=== PATIENT | male | born 1960 | race Caucasian/White ===

== ENCOUNTER → 2019-06-18 15:59 | Outpatient (CLI) | payer BC, SELFPAY ==
[2018-03-10 10:02] VITALS: BMI 33.4
[2019-06-18 18:02] LABS: Absolute Lymphocyte Count 2.68 X10^3/uL (0.83-4.51); Absolute Neutrophil Count 2.9 X10^3/uL (2.0-7.7); Basophil# 0.07 X10^3/uL; Eosinophil# 0.26 X10^3/uL; Eosinophils% 3.8 % (0-5); Hematocrit 39.3 % (40-54); Hemoglobin 13.2 g/dL (13.0-16.5); Lymphocyte # 2.68 X10^3/ul (4.0); Lymphocyte % 39.5 % (19-41); Mean Corp Hgb Conc 33.6 g/dL (32-36); Mean Corpuscular Hgb 31.5 pg (27.0-32.0); Mean Corpuscular Volume 93.8 fL (80-94); Mean Platelet Vol. 8.3 fl (6.2-12.0); Monocyte% 11.8 % (0-10); NRBC Flagged by Analyzer 0 % (0-5); Neutrophil # 2.94 X10^3/uL (2.7-7.7); Neutrophil % 43.5 % (47-70); Platelet Count 194 K/mm3 (150-450); RBC Distribution Width CV 11.9 % (11.6-14.6); RBC Distribution Width SD 40.7 fl (35.1-43.9); Red Blood Count 4.19 M/mm3 (4.6-6.2); White Blood Count 6.8 K/mm3 (4.4-11.0)
== END ==
PROVIDERS: Family Provider Preventive Medicine Occupational Medicine; PCP Preventive Medicine Occupational Medicine; Referring Provider Internal Medicine Pulmonary Disease; Visit Provider Internal Medicine Pulmonary Disease
DX: G47.10 Hypersomnia, unspecified (principal); J44.9 Chronic obstructive pulmonary disease, unspecified
CPT/HCPCS: 36415; 85025

== ENCOUNTER → 2019-10-03 16:43 | Outpatient (CLI) | payer BC, SELFPAY ==
[2018-03-10 10:02] VITALS: BMI 33.4
== END ==
PROVIDERS: PCP Preventive Medicine Occupational Medicine; Referring Provider Urology; Visit Provider Urology
DX: N40.1 Benign prostatic hyperplasia with lower urinary tract symptoms (principal)
CPT/HCPCS: 36415; 84153

== ENCOUNTER → 2020-05-20 06:36 | Outpatient (CLI) | payer BC, SELFPAY ==
--- NOTE | 2020-05-20 06:42 | CT_ITS ---
HISTORY: Gross hematuria follow up. Hx hypertension, skin cancer, COPD. ADDITIONAL HISTORY: None provided. TECHNIQUE: CT images were obtained of the abdomen and pelvis without and with 100mL Isovue-300 IV contrast, enhanced images performed during the venous phase.. Enteric contrast was not given. A radiation dose optimization technique was used for this scan. Number of images including paperwork: [id number] COMPARISON: None FINDINGS: CHEST BASE: No consolidation or pleural effusion. Coronary calcification. LIVER: Decreased density compatible steatosis. Enlarged, right lobe about 18 cm craniocaudal. GALLBLADDER: No radiopaque calculi. BILE DUCTS: No significant biliary dilatation. SPLEEN: Unremarkable. PANCREAS: Unremarkable. ADRENAL GLANDS: Unremarkable. KIDNEYS/URETERS: Unremarkable. BOWEL: No bowel obstruction. No significant bowel wall thickening. No localized inflammation. Colonic diverticulosis. APPENDIX: No evidence of appendicitis. FREE FLUID: No significant free fluid. FREE AIR: None. LYMPH NODES: No pathologic appearing adenopathy. PERITONEUM, RETROPERITONEUM AND MESENTERY: Otherwise unremarkable. VASCULATURE: Atherosclerotic calcification. PELVIS: Unremarkable bladder. ABDOMINAL WALL: Unremarkable. OSSEOUS AND SOFT TISSUE STRUCTURES: No acute skeletal findings. CT/CT Abd/Pelvis W/WO Contrast IMPRESSION: 1. No cause of hematuria detected. 2. Colonic diverticulosis. 3. Hepatomegaly. 4. Hepatic steatosis. Individualized dose optimization techniques were used for this CT. at 0748 Reported and signed by: Nora Blackwell MD Electronically Signed: Nora Blackwell MD at 7:48 EDT Tel , Service support ,
== END ==
PROVIDERS: PCP Preventive Medicine Occupational Medicine; Referring Provider Nurse Practitioner Adult Health; Visit Provider Nurse Practitioner Adult Health
DX: R31.0 Gross hematuria (principal)
CPT/HCPCS: 74178; Q9967

== ENCOUNTER 2020-07-08 06:13 | Observation (INO) | payer BC, SELFPAY ==
[2020-07-08] VITALS (21 sets, daily range): BP systolic 137–172; BP diastolic 82–106; PULSE 60–95; RESP 17–18; TEMP 36.1–37.1; O2SAT 96–99; BMI 34.7; BMI 40.1; BMI 40.2
--- NOTE | 2020-07-08 06:56 | RAD_ITS ---
STUDY: X-RAY CHEST REASON FOR EXAM: Male, 59 years old. CP, CHEST HEAVINESS, SOB X 2 DAYS TECHNIQUE: Single AP portable view of the chest. COMPARISON: Comparison is made with prior study dated 09/13/2014. FINDINGS: EKG electrodes are seen. Hyperinflation. Minimal increased markings at the lung bases suggestive of bibasilar scarring. There is no demonstrated pleural abnormality. Normal size heart. Normal mediastinum and silverio. Normal visualized pulmonary arteries. There is atherosclerotic tortuosity of the aortic arch and descending thoracic aorta. There are diffuse degenerative changes of the visualized thoracic spine. Normal visualized ribs, clavicles, and shoulders. There is no demonstrated abnormality of the visualized soft tissue structures of the upper abdomen. RAD/Chest 1 View (Portable) IMPRESSION: Hyperinflation. Mild degree of bibasilar scarring. Electronically Signed: Daniele Azul, at 8:12 EST , Service support ,
--- NOTE | 2020-07-08 06:56 | EKG12_ITS ---
Test Reason : CP Blood Pressure : / mmHG Vent. Rate : 066 BPM Atrial Rate : 066 BPM P-R Int : 186 ms QRS Dur : 080 ms QT Int : 392 ms P-R-T Axes : 035 -06 000 degrees QTc Int : 410 ms Normal sinus rhythm Normal ECG When compared with ECG of 08-JUL-2020 09:27, MANUAL COMPARISON REQUIRED, DATA IS UNCONFIRMED Confirmed by RISSA RIVERS, MASON ([id number]), corporate compliance officer NAEL DORMAN ([id number]) on 07/10/2020 10:59:21 AM Referred By: Confirmed By:MASON KWOK MD
--- NOTE | 2020-07-08 06:57 | ED.VIS.CHEST ---
History of Present Illness Chief Complaint: Shortness of Breath Informant: Patient Onset: Month(s) - 5-6 Activity at onset: Exertion - but not every episode Timing: Intermittent, Lasts - 5-10 min Quality: Heaviness Location: Substernal - without radiation Current Severity: Gone Maximum Severity: Severe Worsened By: Nothing Relieved By: Nothing Associated Symptoms: Dyspnea. Negative for: Nausea, Vomiting, Diaphoresis, Cough, Fever, Lightheadedness, Palpitations Narrative: 59-year-old male presents with episodic nonpleuritic chest pain and shortness of breath. Symptoms are gone now. He states upon almost arriving to the ER they seem to resolve. He has been having these episodes since the summer this year. He is scheduled to see GI for an EGD because of the symptoms. He has had no other testing. Has no known history of heart disease. He is treated for hypertension, hyperlipidemia, COPD, and he states he is a borderline diabetic. He presents to the ER this morning even though the symptoms are identical, because this was the worst severity episode he has had. He states they usually occur in the morning, but they are usually when he is at work and exerting himself lightly as it was this morning. He denies symptoms when lying supine. He denies any leg pain or swelling, no history of DVT or PE. CVD Risk Factors: Hypertension, Diabetes, Hypercholesterolemia, Family History 1' </=55, Smoking - former - Past Medical History (1) Borderline diabetes Status: Chronic (2) COPD (chronic obstructive pulmonary disease) Status: Chronic (3) Dyslipidemia Status: Chronic (4) HTN (hypertension) Status: Chronic Past Medical History - Allergies and Home Meds Allergies/Adverse Reactions: Allergies No Known Allergies Allergy (Verified 07/08/20 06:17) Primary Care Physician: Tang Salinas DO [Primary Care Provider] - Surgical History: no surgical history Smoking Status: Former smoker - Family History Paternal Family History: Reports: Heart Disease Review of Systems General: Denies: Chills, Fever, Sweats Eyes: Denies: Visual changes - bilaterally, Diplopia ENT: Denies: Rhinorrhea, Sore throat Cardiovascular: Reports: Chest pain. Denies: Palpitations Respiratory: Reports: Dyspnea. Denies: Cough, Dyspnea on exertion Gastrointestinal: Denies: Abdominal pain, Nausea, Vomiting, Diarrhea, Melena, Hematochezia Genitourinary: Denies: Dysuria, Hematuria, Frequency Musculoskeletal: Denies: Myalgias, Back pain, Extremity Pain Skin: Denies: Rash, Wounds Neurological: Denies: Headache, Weakness, Numbness Physical Exam Vital Signs/Narrative: Vital Signs Temp Pulse Resp BP Pulse Ox 07/08/20 06:14 96.9 F L 95 17 167/92 H 98 Inital Vital Signs reviewed: Yes General: Well nourished, Well developed, No Acute Distress Head: Normocephalic, Atraumatic Eyes: Perrl, EOMI ENT: Moist mucous membranes, No rhinorrhea Neck: Supple, Nontender Cardiovascular: Regular rate, Regular rhythm, No murmurs Respiratory: No distress, CTA bilaterally, Chest nontender Abdomen: Soft, Nontender, Nondistended, Normal bowel sounds Back: Nontender, Normal Inspection Extremities: Nontender, No edema. Negative for: Calf Tenderness Skin: Normal color, No rash, No Trauma Neurological: Alert, Oriented x3, Cranial nerves II-XII grossly intact, Normal Strength, Normal Sensation, Normal Gait Psychological: Normal affect, Normal Mood Diagnostic/Tx/Re-eval Chest X-Ray - ED: 1 View, Read by ED Physician, No Acute Disease, Chronic Changes - c/w COPD Laboratory Tests 07/08/20 07/08/20 Range/Units 07:15 07:15 WBC 5.0 (4.4-11.0) K/mm3 RBC 4.46 L (4.6-6.2) M/mm3 Hgb 13.7 (13.0-16.5) g/dL Hct 41.8 (40-54) % MCV 93.7 (80-94) fL MCH 30.7 (27.0-32.0) pg MCHC 32.8 (32-36) g/dL RDW Std Deviation 41.8 (35.1-43.9) fl RDW Coeff of Veda 12.1 (11.6-14.6) % Plt Count 193 (150-450) K/mm3 MPV 7.8 (6.2-12.0) fl Immature Gran % (Auto) 0.400 (0.0-0.9) % Neut % (Auto) 57.3 (47-70) % Lymph % (Auto) 25.8 (19-41) % [place] % (Auto) 12.3 H (0-10) % Eos % (Auto) 3.4 (0-5) % Baso % (Auto) 0.8 (0-1) % Absolute Neuts (auto) 2.9 (2.0-7.7) X10^3/uL Absolute Lymphs (auto) 1.28 (0.83-4.51) X10^3/uL Nucleated RBC % 0 (0-5) % Sodium 135 L (136-145) mmol/L Potassium 4.3 (3.5-5.1) mmol/L Chloride 104 (98-107) mmol/L Carbon Dioxide 31.0 (21.0-32.0) mmol/L Anion Gap 0 L (5-15) BUN 21 H (7-18) mg/dL Creatinine 1.10 (0.70-1.30) mg/dL Estim Creat Clear Calc 74.66 ml/min Est GFR (MDRD) Af Amer 88 (>60) mL/min Est GFR (MDRD) Non-Af 73 (>60) mL/min BUN/Creatinine Ratio 19.1 (10-20) RATIO Glucose 145 H (74-106) mg/dL Calcium 8.8 (8.5-10.1) mg/dL Troponin I < 0.015 (<0.045) ng/mL - Rhythm Strip Rhythm Strip: Sinus Rhythm Rate: 76 Ectopy: None - EKG Initial EKG Interpretation: Sinus Rhythm, No Acute Injury Pattern - normal EKG Prior: No Prior Treatment: Aspirin Repeat Eval: Pain Free NISHANT Risk: Age >/= 65, >/= 3RF, Severe Angina </=24 hours Score: 3 - Medical Decision Making Symptoms are concerning, his EKG and troponin are negative, he remained chest pain-free. He was given aspirin. He had a stress test in 2014 that was negative, but he has not had one since. He has risk factors including family history at a young age, his mother. If he is going to follow-up with GI regarding this, I think he would benefit from having a negative stress test first, which would further the likelihood that he is not having episodes of unstable angina. Patient is amenable to staying for a stress test if we can get it today, since it is early in the morning we suspect that can happen. Discussed with hospitalist for inpatient observation. ED Disposition - Plan for ED Patient: Disposition: Acute Care Hospital [facility] Diagnosis: Chest pain, unspecified Referrals: Tang Salinas DO [Primary Care Provider] -
[2020-07-08] MEDS: Aspirin 81 MG TAB.CHEW 324 MG PO (07:10)
[2020-07-08 07:23] LABS: Absolute Lymphocyte Count 1.28 X10^3/uL (0.83-4.51); Absolute Neutrophil Count 2.9 X10^3/uL (2.0-7.7); Basophil# 0.04 X10^3/uL; Basophil% 0.8 % (0-1); Eosinophil# 0.17 X10^3/uL; Eosinophils% 3.4 % (0-5); Hematocrit 41.8 % (40-54); Hemoglobin 13.7 g/dL (13.0-16.5); Lymphocyte # 1.28 X10^3/ul (4.0); Lymphocyte % 25.8 % (19-41); Mean Corp Hgb Conc 32.8 g/dL (32-36); Mean Corpuscular Hgb 30.7 pg (27.0-32.0); Mean Corpuscular Volume 93.7 fL (80-94); Mean Platelet Vol. 7.8 fl (6.2-12.0); Monocyte# 0.61 X10^3/uL; Monocyte% 12.3 % (0-10); NRBC Flagged by Analyzer 0 % (0-5); Neutrophil # 2.85 X10^3/uL (2.7-7.7); Neutrophil % 57.3 % (47-70); Platelet Count 193 K/mm3 (150-450); RBC Distribution Width CV 12.1 % (11.6-14.6); RBC Distribution Width SD 41.8 fl (35.1-43.9); Red Blood Count 4.46 M/mm3 (4.6-6.2)
[2020-07-08 07:40] LABS: Anion Gap 0 (5-15); BUN 21 mg/dL (7-18); BUN/Creat Ratio 19.1 RATIO (10-20); Calcium,Total 8.8 mg/dL (8.5-10.1); Chloride 104 mmol/L (98-107); EST Glomerular Filtration Rate 73 mL/min (>60); Est Glom Filt Rate - Afr Amer 88 mL/min (>60); Estimated Creatinine Clearance 74.66 ml/min; Glucose 145 mg/dL (74-106); Potassium 4.3 mmol/L (3.5-5.1); Sodium Level 135 mmol/L (136-145)
--- NOTE | 2020-07-08 08:06 | EKG12_ITS ---
Test Reason : CP Blood Pressure : / mmHG Vent. Rate : 059 BPM Atrial Rate : 059 BPM P-R Int : 182 ms QRS Dur : 078 ms QT Int : 402 ms P-R-T Axes : 036 020 011 degrees QTc Int : 397 ms Sinus bradycardia Otherwise normal ECG When compared with ECG of 08-JUL-2020 06:33, MANUAL COMPARISON REQUIRED, DATA IS UNCONFIRMED Confirmed by RISSA RIVERS, MASON ([id number]), news editor NAEL DORMAN ([id number]) on 07/10/2020 10:59:53 AM Referred By: Confirmed By:MASON KWOK MD
--- NOTE | 2020-07-08 10:53 | PCM.HP.STD ---
Problem List (1) Chest pain, unspecified Status: Acute (2) Borderline diabetes Status: Chronic (3) HTN (hypertension) Status: Chronic (4) COPD (chronic obstructive pulmonary disease) Status: Chronic (5) Dyslipidemia Status: Chronic (6) Disorientation Status: Acute History of Present Illness Date of Admission: 07/08/20 Chief Complaint: chest pain The patient is a 59 year old M with pmhx of HTN, HLD, prediabetes, former smoker, family hx CAD who presented to the ER with c/o intermittent chest pain. This is described as an intermittent chest heaviness across the whole chest that occurs with exertion and is relieved at rest. The duration is usually about 5 mins. He has been having these episodes for months. He was supposed to see a financial operations consultant for an EGD as his PCP was concerned this was gastric in etiology. The patient had some associated SOB. He denies diaphoresis, LH, or dizziness, or palp. He currently has no CP. He had a negative stress test in 2014. [] Past Medical History Past Medical History (Chronic Problems): Chronic Problems (Last Updated 03/10/18 @ 10:05 by Zunilda Jones) Borderline diabetes (Chronic) HTN (hypertension) (Chronic) COPD (chronic obstructive pulmonary disease) (Chronic) Dyslipidemia (Chronic) Medical History: Medical History (Last Updated 03/10/18 @ 10:05 by Zunilda Jones) Cancer C80.1 Lung disease J98.4 SOB (shortness of breath) R06.02 HTN (hypertension) I10 Allergies No Known Allergies Allergy (Verified 07/08/20 06:17) Home Medications: Ambulatory Orders Medication Instructions Recorded Lisinopril [Zestril] 10 mg PO DAILY 09/13/14 Simvastatin [Zocor] 40 mg PO QHS 09/13/14 Alfuzosin HCl [Alfuzosin HCl ER] 10 mg PO DAILY 07/08/20 Fluticasone/Umeclidin/Vilanter 1 ea IH DAILY 07/08/20 [Trelegy Ellipta 100-62.5-25] Icosapent Ethyl [Vascepa] 2 gm PO BID 07/08/20 Omeprazole 40 mg PO DAILY 07/08/20 Prednisone 20 mg PO DAILY 07/08/20 Ropinirole HCl 0.5 mg PO QHS 07/08/20 Surgical History: Surgical History (Last Updated 03/10/18 @ 10:05 by Zunilda Jones) History of back surgery Z98.890 Surgical History: no surgical history Psychiatric History: No pertinent psych hx Lives: Alone Smoking Status: Former smoker Tobacco Use: Non-smoker Alcohol: None Drugs: None - *Family History Paternal History Items: No pertinent history Maternal History Items: Heart Disease Review of Systems Constitutional: Denies: Chills, Fever, Weight Change HEENT: Denies: Head Aches, Sinus Congestion, Sinus Drainage Cardiovascular: Reports: Chest Pain, Heaviness. Denies: Edema, Light Headedness, Palpitations Respiratory: Reports: Shortness of Breath, Shortness of breath upon exertion. Denies: Cough, Shortness of breath at rest, Sputum production Gastrointestinal: Denies: Abdominal Pain, Diarrhea, Nausea, Vomiting Genitourinary: Denies: Dysuria, Hesitancy, Urgency Musculoskeletal: Denies: Joint Pain, Joint Tenderness Skin: Denies: Lesions, Rash, Wounds Neurological: Denies: Numbness, Tingling, Focal weakness Psychiatric: Denies: Anxiety, Depression, Homicidal Ideations, Suicidal Ideations Hematologic/ Lymphatic: Denies: Easy Bruising, Easy Bleeding VTE Information - Inpt Only VTE Present on Admission: No VTE Mechan Device Prophylaxis: None VTE Pharm Prophylaxis ordered?: Yes Patient Problems: Active and Suspected Problems (Last Updated 03/10/18 @ 10:05 by Zunilda Jones) Chest pain, unspecified (Acute) - Physical Exam Vitals/I&O's: Vital Signs Temp Pulse Resp BP Pulse Ox 98.7 F 65 18 152/92 H 98 07/08/20 08:20 07/08/20 08:21 07/08/20 08:20 07/08/20 08:20 07/08/20 08:20 Oxygen Delivery Method Room Air Weight: 280 lb 3.32 oz Body Mass Index (BMI) 40.1 Finger Stick Blood Glucose 101 General: Alert, Oriented x3, Cooperative HEENT: Atraumatic, PERRLA, EOMI, Normocephalic Neck: Supple, No JVD, Negative Carotid Bruits Lungs: Clear to auscultation, Normal air movement Cardiovascular: Regular rate, No murmurs Abdomen: Bowel Sounds Present, Soft, Non Tender, Obese Extremities: No edema, Capillary Refill Less than 3 Seconds Skin: No rashes, No breakdown Musculoskeletal: No Tenderness to Palpation of Joints or Extremities Neurological: Cranial nerves II-XII grossly intact Psych/Mental Status: Normal Affect, Appropriate Laboratory Results 07/08/20 07:15: WBC 5.0, RBC 4.46 L, Hgb 13.7, Hct 41.8, MCV 93.7, MCH 30.7, MCHC 32.8, RDW Std Deviation 41.8, RDW Coeff of Veda 12.1, Plt Count 193, MPV 7.8, Immature Gran % (Auto) 0.400, Neut % (Auto) 57.3, Lymph % (Auto) 25.8, [place] % (Auto) 12.3 H, Eos % (Auto) 3.4, Baso % (Auto) 0.8, Absolute Neuts (auto) 2.9, Absolute Lymphs (auto) 1.28, Nucleated RBC % 0 07/08/20 07:15: Sodium 135 L, Potassium 4.3, Chloride 104, Carbon Dioxide 31.0, Anion Gap 0 L, BUN 21 H, Creatinine 1.10, Estim Creat Clear Calc 74.66, Est GFR (MDRD) Af Amer 88, Est GFR (MDRD) Non-Af 73, BUN/Creatinine Ratio 19.1, Glucose 145 H, Calcium 8.8, Troponin I < 0.015 07/08/20 09:18: Troponin I 0.048 H Current Medications Sodium Chloride () 250 mls @ 15 mls/hr IV .[id number] PRN PRN Reason: Saline Flush Sodium Chloride () 250 mls @ 15 mls/hr IV .[id number] PRN PRN Reason: Additional IVPB Infusion Sodium Chloride (0.9% Saline Lock 10 Ml Syringe) 10 - 40 ml IV UD PRN PRN Reason: SALINE FLUSH Assessment/Plan All Active Problems (Last Updated 03/10/18 @ 10:05 by Zunilda Jones) Chest pain, unspecified (Acute) Disorientation (Acute) 1. Chest pain - hx HTN, HLD, obesity, borderline DMt2, former smoker, COPD, family hx CAD. 2nd troponin indeterminate. Consult cardiology. EKG neg. Repeat Troponin. Check FLP. Check A1C. Continue aspirin, statin, misa-i 2. HTN - mildly elevated - trend. 3. HLD - continue statin, vascepa. 4. COPD - lungs clear. prn albuterol. No exacerbation. 5. GERD - PPI. DVT ppx: lovenox This patient was seen by Michele Holland PA-C under the supervision of Dr. Higgins.
--- NOTE | 2020-07-08 11:09 | NURSING ---
Called repot to Che STEVEN in r&d lab technician
[2020-07-08 11:23] LABS: Cholesterol 133 mg/dL (200); High Density Lipoprotein 33 mg/dL; Triglycerides 333 mg/dL; Very Low Density Lipoprotein 67 mg/dL (5-40)
[2020-07-08 11:25] LABS: Hemoglobin A1c 5.7 % (3.8-5.6)
--- NOTE | 2020-07-08 11:38 | CASEMGMT ---
According to the [facility] website, the following are in-network tertiary facilities: [facility], [place], [facility], [facility], [facility], [facility], [facility], and . Grisel STEVEN CM
--- NOTE | 2020-07-08 12:39 | CON.PCM_ITS ---
Reason for Consult Date of Consultation: 07/08/20 Reason for Consultation: Chest pain History of Present Illness: The patient is a 59 year old M with no previous cardiac history other than hypertension who presents to the emergency room last night with chest discomfort. He described this as a heaviness like someone sitting on his chest. He did not break out in a sweat. He is not had any palpitations no paroxysmal nocturnal dyspnea or pedal edema he has not had any neck arm or jaw discomfort previously. He has been compliant with all his medications. In the emergency room he was evaluated he was noted to be in normal sinus rhythm he was admitted to the telemetry care unit and was scheduled to have a stress test this morning. I was called by the stress lab due to his mildly abnormal troponin and we canceled the stress test in favor of further invasive therapy based on his history. [] Past Medical History Allergies/Adverse Reactions: Allergies No Known Allergies Allergy (Verified 07/08/20 06:17) Home Medications: Ambulatory Orders Medication Instructions Recorded Lisinopril [Zestril] 10 mg PO DAILY 09/13/14 Simvastatin [Zocor] 40 mg PO QHS 09/13/14 Alfuzosin HCl [Alfuzosin HCl ER] 10 mg PO DAILY 07/08/20 Fluticasone/Umeclidin/Vilanter 1 ea IH DAILY 07/08/20 [Trelegy Ellipta 100-62.5-25] Icosapent Ethyl [Vascepa] 2 gm PO BID 07/08/20 Omeprazole 40 mg PO DAILY 07/08/20 Prednisone 20 mg PO DAILY 07/08/20 Ropinirole HCl 0.5 mg PO QHS 07/08/20 Past Medical History (Chronic Problems): Chronic Problems (Last Updated 03/10/18 @ 10:05 by Zunilda Jones) Borderline diabetes (Chronic) HTN (hypertension) (Chronic) COPD (chronic obstructive pulmonary disease) (Chronic) Dyslipidemia (Chronic) Surgical History: no surgical history Psychiatric History: No pertinent psych hx - *Family History Maternal History Items: Heart Disease Paternal History Items: No pertinent history Lives: Alone Smoking Status: Former smoker Tobacco Use: Non-smoker Alcohol: None Drugs: None Review of Systems - Review of Systems General: Denies: Fever, Night Sweats, Fatigue HEENT: Denies: Vision Change Cardiovascular: Reports: Chest Discomfort, Chest Discomfort at Rest. Denies: Shortness of Breath, Orthopnea, PND, Peripheral Edema, Palpitations, Lightheadedness, Dizziness, Near Syncope, Syncope Respiratory: Denies: Cough, Sputum Production, Hemoptysis Gastrointestinal: Denies: Hematemesis, Hematochezia, Melena Genitourinary: Denies: Dysuria, Hematuria Skin: Denies: Rash Neurological: Denies: Dizziness Psychiatric: Denies: Anxiety Endocrine: Denies: Heat Intolerance Hematologic/ Lymphatic: Denies: Lymph Node Enlargement Subjectve: Pleasant gentleman in no distress Objective: Vital Signs Temp Pulse Resp BP Pulse Ox 97.6 F L 68 18 166/106 H 98 07/08/20 11:00 07/08/20 11:00 07/08/20 11:00 07/08/20 11:00 07/08/20 11:00 Oxygen Delivery Method Room Air Weight: 280 lb 3.32 oz Body Mass Index (BMI) 40.1 Finger Stick Blood Glucose 101 General: Awake, Alert, Oriented x 3 HEENT: PERRL, EOMI, Sclera Non Icteric Neck: Supple, Good ROM, No Lymph Node Enlargement Lungs: Clear to auscultation Cardiovascular: Regular Rhythm, Normal S1, Normal S2, No Murmurs, No Rubs, No Gallops Vascular: No Carotid Bruits, Normal Femoral Pulses, Normal Radial Pulses, Normal Dorsalis Pedal Pulse, Normal Posterior Tibial Pulses Abdomen: Bowel Sounds Present, Soft, Non Tender, No HSM, No Organomegaly Extremities: No Cyanosis, No Clubbing, No edema Musculoskeletal: No Erythema Skin: No Rashes Lymphatic: No Lymph Node Enlargement Neurological: No Focal Motor or Sensory Deficit Psych/Mental Status: Appropriate 07/08/20 07:15: WBC 5.0, RBC 4.46 L, Hgb 13.7, Hct 41.8, MCV 93.7, MCH 30.7, MCHC 32.8, Plt Count 193, MPV 7.8, Immature Gran % (Auto) 0.400, Neut % (Auto) 57.3, Lymph % (Auto) 25.8, [place] % (Auto) 12.3 H, Eos % (Auto) 3.4, Baso % (Auto) 0.8, Absolute Neuts (auto) 2.9, Nucleated RBC % 0 07/08/20 07:15: Sodium 135 L, Potassium 4.3, Chloride 104, Carbon Dioxide 31.0, Anion Gap 0 L, BUN 21 H, Creatinine 1.10, Est GFR (MDRD) Af Amer 88, Est GFR (MDRD) Non-Af 73, BUN/Creatinine Ratio 19.1, Glucose 145 H, Calcium 8.8, Troponin I < 0.015 07/08/20 09:18: Troponin I 0.048 H 07/08/20 09:18: Triglycerides 333 H, Cholesterol 133, LDL Cholesterol 33, VLDL Cholesterol 67 H, HDL Cholesterol 33 L 07/08/20 09:18: Hemoglobin A1c 5.7 H Rhythm: EKG: Normal sinus rhythm with no acute changes ECHO: Stress Test: Cardiac Cath: PCI: CT Surgery: Holter monitor: EPS: PPM: CXR: Chest CT Scan: Assessment/Plan 1. Unstable angina * Patient presents with chest pain with no exertional features. The above findings are concerning for unstable angina. With a mild troponin rise I would recommend that the patient undergo a cardiac catheterization. The risk benefits alternatives were explained to him and he had slurred and agrees to proceed. Depending on the findings further recommendations will be made. * 2. Hypertension * Patient is noted to be hypertensive. The plan is to continue his current medication with aggressive risk factor modification. * 3. Hyperlipidemia * He does have a history of hyperlipidemia and he will be continued on aggressive risk factor modification. * Addendum: Cardiac catheterization performed today demonstrated the following: Normal left main coronary. Calcified left anterior descending artery with moderate 30 to 50% proximal to mid segment stenosis. Left circumflex artery with no high-grade stenosis. Dominant large right coronary artery with proximal 95% stenosis and a calcified vessel and a mid 99% stenosis. Preserved left ventricular systolic function. Based on the above angiographic findings the patient would undergo angioplasty and stenting of the right coronary artery.
--- NOTE | 2020-07-08 12:50 | CL.D_ITS ---
Patient Name: MERCY MILLAN Study Date: 07/08/2020 Performing: Ronny Lozoya MD Ht: 70.07 inches 178 cm : 1960 Wt: 279.99 lbs 127 kg Age: 59 Gender: male BSA: 2.41 PROCEDURE(S) PERFORMED [id number]/LV [id number], SINGLE CORONARY ARTERY CLINICAL PROFILE AND INDICATIONS Indications: Worsening Angina Heart Failure: None Stress/Imaging Stress/Image Study Performed: No CAD Presentations: Unstable angina. CONCLUSIONS Significant single-vessel coronary disease with proximal 95% right coronary artery stenosis and mid 9 9% right coronary stenosis in the calcified vessel. Calcification noted in the left anterior descend ing artery with mild to moderate disease. Preserved left ventricular systolic function. RECOMMENDATIONS Referred for immediate PCI DESCRIPTION OF PROCEDURE The patient arrived to the procedure lab. The risks and benefits of the procedure as well as a full d escription of our services here and current unavailability of surgical backup were fully explained to the patient and/or their significant other prior to the catheterization. The Timeout was completed, verifying the correct patient and procedure. The patient's procedural site was prepped and draped in the usual fashion. Local anesthetic was given subcutaneously to right radial region with Lidocaine 2% . Using a modified Seldinger technique, arterial access was obtained via the right radial artery, a 6 Fr sheath was inserted. Left Coronary Artery selective angiography was performed in multiple views u sing a 5 Fr. 4.0 [place] catheter. Right Coronary Artery selective angiography was then performed in mu ltiple views using a 5 Fr. 4.0 [place] catheter. Left Ventriculography was performed in CORTEZ projection using a 5 Fr. Pigtail catheter. LV to AO pullback pressures were then recorded. CORONARY ANGIOGRAPHY DOMINANCE: Right Dominant LEFT HEART ASSESSMENT Left Ventricular Ejection Fraction: by LV Gram 60 % Normal LV wall motion Normal Left Ventricular systolic function LEFT MAIN: Mild calcification, Angiographically normal LEFT ANTERIOR DESCENDING ARTERY: PROX LAD: Mild luminal irregularities less than 30% MID LAD: Moderate calcification CIRCUMFLEX ARTERY: No significant disease noted RIGHT CORONARY ARTERY: Moderate calcification PROX RCA: 95 % Stenosis MID RCA: 99 % Stenosis COMPLICATIONS PROCEDURE MEDICATIONS Fentanyl 50 mcg IV Versed 1 mg IV Oxygen: 2 L/min via nasal cannula Brilinta 180 mg PO @ 07/08/2020 12:33:29 Heparin diluted in 23cc Heparinized saline. Patient given 10cc IA of this solution. 07/08/2020 12:16 :39 Heparin 7000 unit(s) IV 07/08/2020 12:41:38 Verapamil 2.5mg, Ntg 100mcgs, 2000 units of Heparin diluted in 23cc Heparinized saline. Patient give n 10cc IA of this solution. 07/08/2020 12:16:39 SUMMARY OF HEMODYNAMIC DATA Time AIR REST ECG 11:27:33 AO 150/92 (118) SA 12:23:52 LV 154/4, 14 12:31:22 LV 157/4, 14 12:31:27 LV 151/8, 16 12:32:33 LVp 154/7, 22 12:32:36 AOp 164/90 (121) 12:32:41 Signed By Ronny Lozoya MD On 07/08/2020 12:49:24 Ronny Lozoya MD
--- NOTE | 2020-07-08 13:30 | EKG12_ITS ---
Test Reason : SOB Blood Pressure : / mmHG Vent. Rate : 076 BPM Atrial Rate : 076 BPM P-R Int : 186 ms QRS Dur : 084 ms QT Int : 380 ms P-R-T Axes : 059 023 022 degrees QTc Int : 427 ms Normal sinus rhythm Normal ECG Confirmed by LIANET RIVERS, CLAUDE ([id number]), photography editor NAEL DORMAN ([id number]) on 07/13/2020 9:28:20 A M Referred By: HUGH Confirmed By:AMIE MARTINI MD
[2020-07-08] MEDS: 0.9% Normal Saline 1,000 ML 100 ML IV (13:45)
[2020-07-08 14:31] LABS: Hematocrit 40.7 % (40-54); Hemoglobin 13.7 g/dL (13.0-16.5); Mean Corp Hgb Conc 33.7 g/dL (32-36); Mean Corpuscular Hgb 31.1 pg (27.0-32.0); Mean Corpuscular Volume 92.5 fL (80-94); Mean Platelet Vol. 7.9 fl (6.2-12.0); Platelet Count 204 K/mm3 (150-450); RBC Distribution Width CV 11.9 % (11.6-14.6); RBC Distribution Width SD 40.8 fl (35.1-43.9); White Blood Count 6.3 K/mm3 (4.4-11.0)
--- NOTE | 2020-07-08 15:00 | CRPHASE1_ITS ---
Patient Communication PHII Cardiac Rehab Discussed with Patient:: Yes Guide to Cardiac Rehab Given to Patient:: Yes Cardiac Rehab Facility Choice List Given to Patient:: Yes Choice Program [facility] CR PHII:: Communication Given to CR, Refer to [facility] Cup[employer] Liner Helper:: Shireen Short Refer Phase II Cardiac Rehab:: Yes - to take place after discharge Risk Factors/Lifestyle Laboratory Values: Cardiac Rehab Phase I Labs Hemoglobin A1c 5.7 % (3.8-5.6) H 07/08/20 09:18 Triglycerides 333 mg/dL (-199) H 07/08/20 09:18 Cholesterol 133 mg/dL (200) 07/08/20 09:18 LDL Cholesterol 33 mg/dL (0-130) 07/08/20 09:18 HDL Cholesterol 33 mg/dL (40-) L 07/08/20 09:18 Cardiac Rehabilitation Info Cardiac Rehabilitation Program Information: Cardiac Rehabilitation is important for patients like you who are recovering from a heart problem. Cardiac rehabilitation programs are recognized as integral to the continued care of the patient with coronary heart disease. The cardiac rehabilitation program is designed to optimize a patient's physical, psychological, and social functioning. Health career development engineer work in cardiac rehabilitation programs and assist you with getting the treatments you need to get stronger and healthier - like exercise, healthy eating habits, and medications. Cardiac rehabilitation has been show to help people with heart problems live longer and have better life enjoyment than people who do not go to cardiac rehabilitation. Please contact the Cardiac Rehabilitation Program at [facility] at in two weeks if you have not heard from them.
--- NOTE | 2020-07-08 15:02 | CRPH1.INSTRU ---
General Education CAD and cardiac anatomy and function:: Patient communicates acknowledgment Explanation of diagnoses and procedures:: Patient communicates acknowledgment Sign/Symptoms of ME:: Patient communicates acknowledgment Antiplatelet therapy: Patient communicates acknowledgment Proper use of NTG-SL: Patient communicates acknowledgment Emergency procedures and activation of EMS: Patient communicates acknowledgment Compliance of all prescribed medications: Patient communicates acknowledgment Smoking Patient Nicotine/Smoking Risk Factors Are:: Cigarettes Recommendations Include:: Previous smoker; encourage continued cessation Nicotine/Smoking Response Code:: Patient communicates acknowledgment Overweight/Obesity Patient Overweight/Obesity Risk Factors Are:: Obesity - > or = 30 Recommendations Include:: Weight loss of 5-10%, Reduced calorie diet, Exercise 5-7 times/week Overweight/Obesity:: Patient communicates acknowledgment Hypertension Recommendations Include:: Maintain BP <130/85, BP <130/80 if diabetic, DASH dietary guidelines, Decrease/maintain normal body weight, Moderation of ETOH Hypertension:: Patient communicates acknowledgment Diabetes Patient Diabetes Risk Factors Are:: Elevated blood sugars Recommendations Include:: Maintain fasting blood sugars 70-110 md/dL, Maintain HgbA1c of 6% or less, Monitor blood sugar as prescribed, Diabetic dietary guidelines, Decrease/maintain body weight Diabetes:: Patient communicates acknowledgment Metabolic Syndrome Patient Metabolic Syndrome Risk Factors Are [3 of 5]:: Fasting blood sugar > 100 mg/dL, Waist circumference > 35 [female] or 40 [male], High triglyceride >150, Hypertension, Low HDL <40 [male] or < 50 [female] Recommendations Include:: Reinforce compliance to risk factor modifications, Encouraged follow-up with Primary Care Physician Metabolic Syndrome Response Code:: Patient communicates acknowledgment Stress Recommendations Include:: Identification of stressors, and assessment of coping skills, Stress management techniques Stress Response Code:: Patient communicates acknowledgment
[2020-07-08] MEDS: Atorvastatin Calcium 20 MG Tablet PO (21:25)
[2020-07-08] MEDS: TICAGRELOR 90 MG TABLET PO (21:25)
[2020-07-08] MEDS: Pramipexole Di-HCl 0.25 MG Tablet PO (21:25)
[2020-07-09 03:00] VITALS: PULSE 64
[2020-07-09 03:20] VITALS: BP 150/94; PULSE 74; RESP 17; TEMP 36.9; O2SAT 97
[2020-07-09 05:18] LABS: Hematocrit 40.7 % (40-54); Hemoglobin 13.6 g/dL (13.0-16.5); Mean Corp Hgb Conc 33.4 g/dL (32-36); Mean Corpuscular Hgb 31.1 pg (27.0-32.0); Mean Corpuscular Volume 93.1 fL (80-94); Mean Platelet Vol. 8.1 fl (6.2-12.0); Platelet Count 201 K/mm3 (150-450); RBC Distribution Width SD 41.1 fl (35.1-43.9); Red Blood Count 4.37 M/mm3 (4.6-6.2); White Blood Count 6.2 K/mm3 (4.4-11.0)
[2020-07-09 05:42] LABS: ALB/GLOB Ratio 1.1 RATIO (0.9-2.4); AST(SGOT) 23 U/L (15-37); Alanine Aminotransfer ALT/SGPT 46 U/L (16-61); Albumin, Serum 3.6 g/dL (3.2-5.0); Alkaline Phosphatase 75 U/L (45-117); Anion Gap 5 (5-15); BUN 21 mg/dL (7-18); BUN/Creat Ratio 19.6 RATIO (10-20); Chloride 104 mmol/L (98-107); Creatinine, Serum 1.07 mg/dL (0.70-1.30); EST Glomerular Filtration Rate 75 mL/min (>60); Est Glom Filt Rate - Afr Amer 91 mL/min (>60); Estimated Creatinine Clearance 76.75 ml/min; Globulin 3.3 g/dL (2.2-4.2); Glucose 105 mg/dL (74-106); Potassium 4.1 mmol/L (3.5-5.1); Protein, Total 6.9 g/dL (6.4-8.2); Sodium Level 136 mmol/L (136-145)
[2020-07-09 06:16] VITALS: PULSE 64
--- NOTE | 2020-07-09 07:47 | PN.CARD_ITS ---
Subjectve: Patient seen and evaluated. He appears to doing well at this time. Objective: Vital Signs Temp Pulse Resp BP Pulse Ox 98.5 F 64 17 150/94 H 97 07/09/20 03:20 07/09/20 06:16 07/09/20 03:20 07/09/20 03:20 07/09/20 03:20 Oxygen Delivery Method Room Air Weight: 280 lb 3.32 oz Body Mass Index (BMI) 40.1 Finger Stick Blood Glucose 101 Intake and Output for Last 24 Hours 07/07/20 07/08/20 07/09/20 23:59 23:59 23:59 Intake Total 822.53 / 942.53 120 / 120 Balance 822.53 / 942.53 120 / 120 General: Awake, Alert, Oriented x 3 HEENT: PERRL, EOMI, Sclera Non Icteric Neck: Supple, Good ROM, No Lymph Node Enlargement Lungs: Clear to auscultation Cardiovascular: Regular Rhythm, Normal S1, Normal S2, No Murmurs, No Rubs, No Gallops Vascular: No Carotid Bruits, Normal Femoral Pulses, Normal Radial Pulses, Normal Dorsalis Pedal Pulse, Normal Posterior Tibial Pulses Abdomen: Bowel Sounds Present, Soft, Non Tender, No HSM, No Organomegaly Extremities: No Cyanosis, No Clubbing, No edema Musculoskeletal: No Erythema Lymphatic: No Lymph Node Enlargement Neurological: No Focal Motor or Sensory Deficit 07/08/20 09:18: Troponin I 0.048 H 07/08/20 09:18: Triglycerides 333 H, Cholesterol 133, LDL Cholesterol 33, VLDL Cholesterol 67 H, HDL Cholesterol 33 L 07/08/20 09:18: Hemoglobin A1c 5.7 H 07/08/20 14:13: WBC 6.3, RBC 4.40 L, Hgb 13.7, Hct 40.7, MCV 92.5, MCH 31.1, MCHC 33.7, Plt Count 204, MPV 7.9 07/09/20 04:54: Sodium 136, Potassium 4.1, Chloride 104, Carbon Dioxide 27.0, Anion Gap 5, BUN 21 H, Creatinine 1.07, Est GFR (MDRD) Af Amer 91, Est GFR (MDRD) Non-Af 75, BUN/Creatinine Ratio 19.6, Glucose 105, Calcium 9.0, Total Bilirubin 0.40 07/09/20 04:54: WBC 6.2, RBC 4.37 L, Hgb 13.6, Hct 40.7, MCV 93.1, MCH 31.1, MCHC 33.4, Plt Count 201, MPV 8.1 Rhythm: EKG: ECHO: Stress Test: Cardiac Cath: PCI: CT Surgery: Holter monitor: EPS: PPM: CXR: Chest CT Scan: Medical Necessity - Tobacco Use Smoking Status: Former smoker Tobacco Use: Non-smoker Assessment/Plan 1. Unstable angina * Patient presented with unstable angina and underwent cardiac catheterization which demonstrated the results as noted below. He underwent angioplasty and stenting and is doing better this morning. * He will be discharged for outpatient follow-up. 2. Hypertension * Patient is noted to be hypertensive. The plan is to continue his current medication with aggressive risk factor modification. * 3. Hyperlipidemia * He does have a history of hyperlipidemia and he will be continued on aggressive risk factor modification. * Addendum: Cardiac catheterization performed today demonstrated the following: Normal left main coronary. Calcified left anterior descending artery with moderate 30 to 50% proximal to mid segment stenosis. Left circumflex artery with no high-grade stenosis. Dominant large right coronary artery with proximal 95% stenosis and a calcified vessel and a mid 99% stenosis. Preserved left ventricular systolic function. Based on the above angiographic findings the patient did undergo angioplasty and stenting of the right coronary artery. Thank you for allowing me to participate in the care of your patient. Please don't hesitate to call if any issues arise.
--- NOTE | 2020-07-09 07:55 | PCM.DC ---
- Discharge Diagnoses Current Active Problems: Current Active and Chronic Problems (Last Updated 07/08/20 @ 20:14 by Nadine Zavala) Chest pain, unspecified (Acute) Dyslipidemia (Chronic) Borderline diabetes (Chronic) COPD (chronic obstructive pulmonary disease) (Chronic) Disorientation (Acute) You will use the following diet at home:: No restrictions Your food should be the consistency of: Regular Your liquids should be the consistency of: Regular/Thin Discharge Activity: Return to Normal Activity Weight Bearing Status: Full weight bearing Allergies/Adverse Reactions: Allergies No Known Allergies Allergy (Verified 07/08/20 06:17) Medications to take at Discharge Lisinopril [Zestril] 10 mg PO DAILY 09/13/14 Simvastatin [Zocor] 40 mg PO QHS 09/13/14 Alfuzosin HCl [Alfuzosin HCl ER] 10 mg PO DAILY 07/08/20 Fluticasone/Umeclidin/Vilanter [Trelegy Ellipta 100-62.5-25] 1 ea IH DAILY 07/08/20 Icosapent Ethyl [Vascepa] 2 gm PO BID 07/08/20 Omeprazole 40 mg PO DAILY 07/08/20 Prednisone 20 mg PO DAILY 07/08/20 Ropinirole HCl 0.5 mg PO QHS 07/08/20 Aspirin [Aspirin, Baby] 81 mg PO DAILY@0800 tab.chew 07/09/20 Metoprolol Succinate [Toprol Xl] 25 mg PO DAILY #30 tab.er.24h 07/09/20 Ticagrelor [Brilinta] 90 mg PO BID #60 tab 07/09/20 The following prescriptions were given: Ticagrelor [Brilinta] 90 mg PO BID #60 tab Transmission Status: Pending to [facility]/pharmacy #[id number] Metoprolol Succinate [Toprol Xl] 25 mg PO DAILY #30 tab.er.24h Transmission Status: Pending to [facility]/pharmacy #[id number] Orders to be completed after discharge: Phase II, Outpatient Cardiac Rehab Location: None Selected Primary Care Physician: Tang Salinas DO [Primary Care Provider] - Test Results: Test results from this visit will be discussed in further detail at your follow-up appointment, if applicable. Please Follow Up With: Ronny Lozoya MD When: in 3 weeks-call for appointment Please Follow Up With: Tang Gil MD When: next week-call for appointment
[2020-07-09 08:52] VITALS: BP 156/93; PULSE 67; RESP 18; TEMP 36.9; O2SAT 96
[2020-07-09] MEDS: Pantoprazole Sodium 40 MG Tablet PO (08:54)
[2020-07-09] MEDS: Lisinopril 10 MG Tablet PO (08:54)
[2020-07-09] MEDS: Aspirin 81 MG TAB.CHEW PO (08:55)
[2020-07-09] MEDS: TICAGRELOR 90 MG TABLET PO (08:55)
--- NOTE | 2020-07-09 09:09 | NURSING ---
Sar[employer] savings card given to patient.
--- NOTE | 2020-07-09 09:36 | CL.I_ITS ---
Patient Name: MERCY MILLAN Study Date: 07/08/2020 Performing: Vy Short MD Ht: 70 inches 178 cm : 1960 Wt: 280.4 lbs 127 kg Age: 59 Gender: male BSA: 2.41 PROCEDURE(S) PERFORMED [id number], SINGLE CORONARY ARTERY CLINICAL PROFILE AND CO-MORBIDITIES Indications: Worsening Angina Heart Failure: None Stress/Imaging Stress/Image Study Performed: No CAD Presentations: Unstable angina. CONCLUSIONS Successful PCI with ADILSON to proximal and mid RCA RECOMMENDATIONS ASA Indefinijuan c Schafferta for at least 12 months Follow up with Dr. Lozoya DESCRIPTION OF PROCEDURE The patient arrived to the procedure lab. The risks and benefits of the procedure as well as a full d escription of our services here and current unavailability of surgical backup were fully explained to the patient and/or their significant other prior to the catheterization. The Timeout was completed, verifying the correct patient and procedure. The patient's procedural site was prepped and draped in the usual fashion. Local anesthetic was given subcutaneously to right radial region with Lidocaine 2% Using a modified Seldinger technique,arterial access was obtained via the right radial artery, a 6Fr sheath was inserted. Left Coronary Artery selective angiography was performed in multiple views usin g a 5 Fr. 4.0 [place] catheter. Right Coronary Artery selective angiography was then performed in multi ple views using a 5 Fr. 4.0 [place] catheter. Left Ventriculography was performed in CORTEZ projection usi ng a 5 Fr. Pigtail catheter. LV to AO pullback pressures were then recorded.The images were reviewed and options discussed. A decision was then made to proceed with an Intervention, IVUS o r other adjunct procedure. JR 4 Guide catheter was inserted and engaged into the RCA. BMW Guide wire was advanced to the RCA . 4.0 x 15 Emerge Balloon catheter was inserted. Guideliner Guide catheter was inserted and engaged i nto the RCA. 2.0 x 12 Emerge Balloon catheter was inserted. Balloon catheter was advanced across lesi on in the right coronary, distal. PTCA balloon inflated at 14 atms for 20 secs. Balloon catheter was advanced across lesion in the right coronary, proximal. PTCA balloon inflated at 12 atms for 10 secs. 4.0 x 15 Emerge Balloon catheter was advanced across lesion in the right coronary, distal. PTCA ball oon inflated at 12 atms for 50 secs. Balloon catheter was advanced across lesion in the right coronar y, proximal. PTCA balloon inflated at 6 atms for 9 secs. PTCA balloon inflated at 10 atms for 10 secs . PTCA balloon inflated at 12 atms for 25 secs. Angiogram performed post balloon dilatation. 4.0 x 16 Synergy Drug Eluting stent was advanced across the lesion in the right coronary, mid. Angiogram performed post stent deployment. 4.0 x 38 Synergy Drug Eluting stent was advanced across th e lesion in the right coronary, proximal. Angiogram performed post stent deployment. The arterial s shane was pulled and a TR Band was applied for hemostasis 12cc air inserted INTERVENTION INFORMATION LESION SITE: RCA (Mid) Lesion Complexity: High/C, chronic total occlusion: No, lesion at bifurcation: No, thrombus present: No, lesion length: 12 mm, culprit lesion: Yes, Previously treated lesion: No Pre Stenosis: 95 % Pre intervention NISHANT flow: 3 PROCEDURE: Drug Eluting Stent with pre dilatation. Post Stenosis: 0 % Post intervention NISHANT flow: 3 Lesion Devices: Medtronic 6 Fr JR4.0 100cm Guide Catheter [place] .014 BMW [place] Straight 190cm Alejandro Sci EMERGE MR 4.00x15 BALLOON [employer] 6 Algerian GuideLiner Alejandro Sci EMERGE MR 2.00x12 BALLOON Alejandro Sci Synergy MR ADILSON 4.00x16 LESION SITE: RCA (Proximal) Lesion Complexity: High/C, chronic total occlusion: No, lesion at bifurcation: No, thrombus present: No, lesion length: 36 mm, culprit lesion: Yes, Previously treated lesion: No Pre Stenosis: 80 % Pre intervention NISHANT flow: 3 PROCEDURE: Drug Eluting Stent with pre dilatation. Post Stenosis: 0 % Post intervention NISHANT flow: 3 Lesion Devices: Medtronic 6 Fr JR4.0 100cm Guide Catheter [place] .014 BMW [place] Straight 190cm Alejandro Sci Synergy MR ADILSON 4.00x38 COMPLICATIONS No Complications PROCEDURE MEDICATIONS Fentanyl 50 mcg IV Versed 1 mg IV Oxygen: 2 L/min via nasal cannula Brilinta 180 mg PO @ 07/08/2020 12:33:29 Heparin diluted in 23cc Heparinized saline. Patient given 10cc IA of this solution. 07/08/2020 12:16 :39 Heparin 7000 unit(s) IV 07/08/2020 12:41:38 Verapamil 2.5mg, Ntg 100mcgs, 2000 units of Heparin diluted in 23cc Heparinized saline. Patient give n 10cc IA of this solution. 07/08/2020 12:16:39 SUMMARY OF HEMODYNAMIC DATA Time AIR REST ECG 11:27:33 AO 150/92 (118) SA 12:23:52 LV 154/4, 14 12:31:22 LV 157/4, 14 12:31:27 LV 151/8, 16 12:32:33 LVp 154/7, 22 12:32:36 AOp 164/90 (121) 12:32:41 RM AIR REST 12:49:30 Signed By Vy Short MD On 07/09/2020 9:35:38 AM Vy Short MD
--- NOTE | 2020-07-09 10:00 | EKG12_ITS ---
Test Reason : AM EKG Blood Pressure : / mmHG Vent. Rate : 071 BPM Atrial Rate : 071 BPM P-R Int : 162 ms QRS Dur : 088 ms QT Int : 408 ms P-R-T Axes : 039 019 021 degrees QTc Int : 443 ms Normal sinus rhythm Normal ECG When compared with ECG of 08-JUL-2020 15:44, MANUAL COMPARISON REQUIRED, DATA IS UNCONFIRMED Confirmed by RISSA RIVERS, MASON ([id number]), video tape editor NAEL DORMAN ([id number]) on 07/13/2020 10:38:24 AM Referred By: RANULFO Confirmed By:MASON KWOK MD
--- NOTE | 2020-07-09 16:12 | PCM.DC.SUM ---
Discharge Date and Diagnosis - Problem List Patient Problems: Active and Suspected Problems (Last Updated 07/08/20 @ 20:14 by Nadine Zavala) Chest pain, unspecified (Acute) Disorientation (Acute) Date of Admission: 07/08/20 Date of Discharge: 07/09/20 - Primary Discharge Diagnosis Acute Problems: Active Problems (Last Updated 07/08/20 @ 20:14 by Nadine Zavala) #1 non-STEMI #2 occlusive coronary artery disease right coronary artery #3 morbid obesity #4 chronic obstructive pulmonary disease #5 hyperlipidemia #6 nonocclusive coronary artery disease in the left anterior descending artery - Secondary Discharge Diagnosis Chronic Problems: Chronic Problems (Last Updated 07/08/20 @ 20:14 by Nadine Zavala) Atherosclerotic heart disease of [place] coronary artery without angina pectoris (Chronic) Essential (primary) hypertension (Chronic) Dyslipidemia (Chronic) Obesity (Chronic) Borderline diabetes (Chronic) COPD (chronic obstructive pulmonary disease) (Chronic) Hospital Course and Treatment Operations: None Procedures: Cardiac catheterization - With 2 ADILSON placement in right coronary artery Summary of Care Provided: The patient is a 59 year old M who was seen in the emergency room at [facility] with a chief complaint of chest pain which 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 Patient been having similar episodes for the last several weeks and was due to undergo an upper endoscopy by GI to make sure the patient did not have esophageal disease. Work-up in the emergency room revealed his troponins to be normal, EKG did not show an injury pattern, chest x-ray was unremarkable. Patient was placed in observation status on PCU and cardiac enzymes were cycled, the repeat cardiac enzyme which was performed was minimally elevated over normal and it was decided to proceed with a cardiac catheterization rather than to subject the patient to a stress test. Patient underwent a cardiac catheterization on 07/08/2020 which showed nonocclusive coronary disease in the LAD but high-grade occlusive disease in the right coronary artery, PCI was performed with insertion of 2 ADILSON in the right coronary artery. Patient did well after the procedure and had no complications. On 07/09/2020, patient was seen and examined: On examination he appeared in good health and spirits. Vital signs as documented. Skin warm and dry and without overt rashes. Neck without JVD, neck was supple, trachea midline, thyroid was normal. Lungs clear bilaterally, normal air movement was noted. Heart exam notable for regular rhythm, normal sounds and absence of murmurs, rubs or gallops. Abdomen unremarkable and without evidence of organomegaly, masses, or abdominal aortic enlargement. Bowel sounds are present, abdomen is not distended. Extremities nonedematous, no cyanosis was noted, no clubbing was noted. Neuro: Cranial nerves II through XII are grossly intact, no focal motor deficits were noted, sensation to light touch and pinprick intact, motor exam 5/5 throughout. Psych: Patient is alert and oriented x3, he does not appear anxious or depressed, he does not appear agitated. Patient was felt to be stable for discharge on 07/09/2020. Patient Problems: Active and Suspected Problems (Last Updated 07/08/20 @ 20:14 by Nadine Zavala) Chest pain, unspecified (Acute) Disorientation (Acute) - Physical Exam Vitals/I&O's: Vital Signs Temp Pulse Resp BP Pulse Ox 98.5 F 67 18 156/93 H 96 07/09/20 08:52 07/09/20 08:52 07/09/20 08:52 07/09/20 08:52 07/09/20 08:52 Oxygen Delivery Method Room Air Weight: 127.1 kg Body Mass Index (BMI) 40.1 Finger Stick Blood Glucose 101 Intake and Output for Last 24 Hours 07/07/20 07/08/20 07/09/20 23:59 23:59 23:59 Intake Total 822.53 / 942.53 120 / 120 Balance 822.53 / 942.53 120 / 120 Laboratory Results 07/09/20 04:54: Sodium 136, Potassium 4.1, Chloride 104, Carbon Dioxide 27.0, Anion Gap 5, BUN 21 H, Creatinine 1.07, Estim Creat Clear Calc 76.75, Est GFR (MDRD) Af Amer 91, Est GFR (MDRD) Non-Af 75, BUN/Creatinine Ratio 19.6, Glucose 105, Calcium 9.0, Total Bilirubin 0.40, AST 23, ALT 46, Alkaline Phosphatase 75, Total Protein 6.9, Albumin 3.6, Globulin 3.3, Albumin/Globulin Ratio 1.1 07/09/20 04:54: WBC 6.2, RBC 4.37 L, Hgb 13.6, Hct 40.7, MCV 93.1, MCH 31.1, MCHC 33.4, RDW Std Deviation 41.1, RDW Coeff of Veda 12.0, Plt Count 201, MPV 8.1 Discharge Activity: Return to Normal Activity Weight Bearing Status: Full weight bearing Home Medications: Medications to take at Discharge Lisinopril [Zestril] 10 mg PO DAILY 09/13/14 Simvastatin [Zocor] 40 mg PO QHS 09/13/14 Alfuzosin HCl [Alfuzosin HCl ER] 10 mg PO DAILY 07/08/20 Fluticasone/Umeclidin/Vilanter [Trelegy Ellipta 100-62.5-25] 1 ea IH DAILY 07/08/20 Icosapent Ethyl [Vascepa] 2 gm PO BID 07/08/20 Omeprazole 40 mg PO DAILY 07/08/20 Prednisone 20 mg PO DAILY 07/08/20 Ropinirole HCl 0.5 mg PO QHS 07/08/20 Aspirin [Aspirin, Baby] 81 mg PO DAILY@0800 tab.chew 07/09/20 Metoprolol Succinate [Toprol Xl] 25 mg PO DAILY #30 tab.er.24h 07/09/20 Ticagrelor [Brilinta] 90 mg PO BID #60 tab 07/09/20 Following Prescriptions Were Given to Patient: Ticagrelor [Brilinta] 90 mg PO BID #60 tab Transmission Status: Received by [facility]/pharmacy #[id number] Metoprolol Succinate [Toprol Xl] 25 mg PO DAILY #30 tab.er.24h Transmission Status: Received by [facility]/pharmacy #[id number] Other Amb Orders: Phase II, Outpatient Cardiac Rehab Location: None Selected Primary Care Physician: Tang Salinas DO [Primary Care Provider] - Please Follow Up With: Ronny Lozoya MD When: in 3 weeks-call for appointment Please Follow Up With: Tang Gil MD When: next week-call for appointment Disposition: Home Minutes spent on discharge:: 30 Patient Condition:: Stable Medical Necessity - Tobacco Use Smoking Status: Former smoker Tobacco Use: Non-smoker Meaningful Use Info Meaningful Use Diagnoses (Choose all that apply): AMI - AMI/Post PCI/Angioplasty Aspirin given w/in 24hrs of arrival?: Yes ASA at discharge?: Yes Antiplatelet Therapy at Discharge:: Yes Statins at discharge?: Yes Tim/ARB at discharge?: Yes Beta Verón[place] at discharge?: Yes Done w/ Acute PA measure.: Yes Documented LVEF (%): 60 OBSV E&M: 29067 Observation care discharge
== END 2020-07-09 07:57 | disposition home or self-care (01) ==
LOC: ED 07:47 → PCU 12:00
PROVIDERS: Physician Assistant; Specialist; Admitting Provider Internal Medicine; Emergency Provider Emergency Medicine; PCP Preventive Medicine Occupational Medicine; Visit Provider Internal Medicine
DX: I25.110 Atherosclerotic heart disease of native coronary artery with unstable angina pectoris (principal); J44.9 Chronic obstructive pulmonary disease, unspecified; E78.5 Hyperlipidemia, unspecified; R41.0 Disorientation, unspecified; R73.03 Prediabetes; I10 Essential (primary) hypertension; Z79.899 Other long term (current) drug therapy; Z79.52 Long term (current) use of systemic steroids; Z87.891 Personal history of nicotine dependence; Z82.49 Family history of ischemic heart disease and other diseases of the circulatory system; K21.9 Gastro-esophageal reflux disease without esophagitis; I21.4 Non-ST elevation (NSTEMI) myocardial infarction; E66.01 Morbid (severe) obesity due to excess calories; Z68.25 Body mass index [BMI] 25.0-25.9, adult
CPT/HCPCS: 36415; 71045; 80048; 80053; 80061; 83036; 84484; 85025; 85027; 92928; 93005; 93458; 96360; 96361; 99152; 99153; 99218; 99284; J7030; J7040; Q9967; A4216; C1725; C1769; C1874; C1887; C1894; C9600; G0378; J1327

== ENCOUNTER → 2020-11-11 06:36 | Outpatient (CLI) | payer OTHER, SELFPAY ==
[2020-10-27 14:24] VITALS: BMI 35.1
--- NOTE | 2020-11-11 17:58 | STRESSREP ---
Stress Test Report Exercise myocardial perfusion stress test. 60-year-old man with a history of chest pain. Stress protocol: Resting KG demonstrates normal sinus rhythm with a rate of 68 bpm resting blood pressure is 158/98 mmHg. The patient exercised according to regular Willy protocol for a total duration of 5 minutes. Patient completed 2 minutes into stage II of the Willy protocol the maximum heart rate attained was 160 bpm which was 100% of maximum predicted heart rate the maximum workload was 7 metabolic equivalents. At rest there were no ST or T wave changes noted to suggest ischemia. At peak exercise there was approximately 1.4 to 1.[address] depression noted suggestive of ischemia. No chest pain was noted. The test was terminated due to dyspnea. The peak blood pressure was 240/110 mmHg which was hypertensive response to exercise. Myocardial perfusion protocol. 14.3 mCi of technetium 99m sestamibi was injected at rest. The patient exercised according to regular Willy protocol for 5 minutes at peak exercise 44.7 mCi of technetium 99m sestamibi was injected stress images were obtained stress and rest images were reconstructed and compared in the short axis vertical long horizontal long axis. Gated images were also obtained. Perfusion SPECT analysis: Review of the stress images demonstrate normal uptake of tracer noted in the septum anterior wall and lateral wall. The inferior wall demonstrates reduced perfusion on the stress images. There is GI uptake noted however. The resting images demonstrate normal perfusion in all areas of the myocardium. Inferior ischemia cannot be completely excluded. Gated SPECT analysis: The gated ejection fraction is 55%. Conclusion: Exercise myocardial perfusion stress test with EKG changes suggestive of ischemia at a moderate workload. Nuclear images do not demonstrate obvious ischemia but inferior ischemia cannot be completely excluded due to significant GI uptake noted. Hypertensive response to exercise.
== END ==
PROVIDERS: PCP Preventive Medicine Occupational Medicine; Referring Provider Internal Medicine Cardiovascular Disease; Visit Provider Internal Medicine Cardiovascular Disease
DX: R07.9 Chest pain, unspecified (principal); I25.10 Atherosclerotic heart disease of native coronary artery without angina pectoris; M79.602 Pain in left arm
CPT/HCPCS: 78452; 93017; A9500; A4216

== ENCOUNTER 2020-11-13 08:39 | Day surgery (SDC) | payer OTHER, SELFPAY ==
[2020-10-27 14:24] VITALS: BMI 35.1
[2020-11-12 13:06] VITALS: BMI 35.1
[2020-11-12 17:30] LABS: Absolute Neutrophil Count 3.1 X10^3/uL (2.0-7.7); Basophil# 0.06 X10^3/uL; Basophil% 0.9 % (0-1); Hematocrit 40.1 % (40-54); Hemoglobin 13.4 g/dL (13.0-16.5); Lymphocyte % 36.5 % (19-41); Mean Corp Hgb Conc 33.4 g/dL (32-36); Mean Corpuscular Volume 92.8 fL (80-94); Mean Platelet Vol. 8.2 fl (6.2-12.0); Monocyte# 0.79 X10^3/uL; NRBC Flagged by Analyzer 0 % (0-5); Neutrophil # 3.09 X10^3/uL (2.7-7.7); Neutrophil % 47.1 % (47-70); Platelet Count 214 K/mm3 (150-450); RBC Distribution Width CV 12.2 % (11.6-14.6); RBC Distribution Width SD 41.9 fl (35.1-43.9); Red Blood Count 4.32 M/mm3 (4.6-6.2); White Blood Count 6.6 K/mm3 (4.4-11.0)
[2020-11-12 18:02] LABS: Anion Gap 8 (5-15); BUN 23 mg/dL (7-18); BUN/Creat Ratio 21.9 RATIO (10-20); Calcium,Total 8.8 mg/dL (8.5-10.1); Chloride 102 mmol/L (98-107); Creatinine, Serum 1.05 mg/dL (0.70-1.30); EST Glomerular Filtration Rate 77 mL/min (>60); Est Glom Filt Rate - Afr Amer 93 mL/min (>60); Estimated Creatinine Clearance 74.81 ml/min; Glucose 92 mg/dL (74-106); Potassium 3.9 mmol/L (3.5-5.1); Sodium Level 136 mmol/L (136-145)
[2020-11-13] VITALS (13 sets, daily range): BP systolic 133–188; BP diastolic 83–100; PULSE 55–68; RESP 16–18; TEMP 36.6–36.9; O2SAT 95–99; BMI 34.0
--- NOTE | 2020-11-13 08:33 | HP_ITS ---
HPI HPI History of Present Illness Details: This is a 60-year-old male who presents the office today for a cardiovascular outpatient follow-up. He has a history of coronary artery disease status post drug-eluting stent to proximal and mid RCA on 07/08/2020, hypertension, hyperlipidemia, RICHARD with CPAP therapy, borderline diabetes, obesity, and COPD. Patient presented [facility] in June 2020 with chest pain/heaviness. Pt denies chest, arm, jaw, or neck discomfort. His exercise tolerance is stable. Pt denies symptoms of CHF, palpitations, lightheadedness, dizziness, near syncopal or syncopal episodes. Pt denies edema or claudication issues. Pt. denies orthopnea, PND, myalgia, or unexplainable fatigue. He states PCP monitors his Lipid panel. 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 Accompanied by: None Is patient in pain?: No Allergies No Known Allergies Allergy (Verified 10/27/20 14:22) Medications Lisinopril [Zestril] 10 mg PO DAILY 09/13/14 [History Confirmed 10/27/20] Simvastatin [Zocor] 40 mg PO QHS 09/13/14 [History Confirmed 10/27/20] Fluticasone/Umeclidin/Vilanter [Trelegy Ellipta 100-62.5-25] 1 ea IH DAILY 07/08/20 [History Confirmed 10/27/20] Icosapent Ethyl [Vascepa] 2 gm PO BID 07/08/20 [History Confirmed 10/27/20] Omeprazole 40 mg PO DAILY 07/08/20 [History Confirmed 10/27/20] Aspirin [Aspirin, Baby] 81 mg PO DAILY@0800 tab.chew 07/09/20 [Rx Confirmed 10/27/20] metoprolol succinate 25 mg tablet,extended release 24 hr 25 mg PO DAILY #90 tab 07/29/20 [Rx Confirmed 10/27/20] ropinirole 0.25 mg tablet 0.5 mg PO QHS tab 07/29/20 [History Confirmed 10/27/20] sertraline 25 mg tablet 25 mg PO DAILY tab 07/29/20 [History Confirmed 10/27/20] ticagrelor 90 mg tablet 90 mg PO BID #180 tab 07/29/20 [Rx Confirmed 10/27/20] [facility] Medical History Chest pain, unspecified (Acute) Atherosclerotic heart disease of [place] coronary artery without angina pectoris (Chronic) Essential (primary) hypertension (Chronic) Dyslipidemia (Chronic) Obesity (Chronic) Borderline diabetes (Chronic) COPD (chronic obstructive pulmonary disease) (Chronic) Disorientation (Acute) Cancer (Acute) Lung disease (Acute) SOB (shortness of breath) (Acute) HTN (hypertension) (Chronic) Surgical History History of coronary artery stent placement (Chronic 07/08/20) History of back surgery (Acute) Family History Mother CAD (coronary artery disease) CABG Diabetes Social History (Updated 10/27/20 @ 15:28 by Rick Carrillo DIRECTOR TELEHEALTH, DIRECTOR TELEHEALTH-C) Smoking Status: Former smoker Electronic Cigarette Use: not used how long ago did patient quit smokin years second hand exposure: Yes alcohol intake: current Alcohol type: beer ROS Const Const: Negative for fatigue, weakness, body ache, fever(s) or chills ENT ENT: Positive for Nosebleed/epistaxis (now and then); negative for dizziness Cardio Chest Pain: No Palpitations: No Edema: None Muscle aches with walking: None Resp Respiratory: Negative for SOB with activity, SOB at rest, SOB orthopnea\SOB lying down, Cough or paroxysmal nocturnal dyspnea GI GI: Negative nausea, vomiting blood/hematemesis, bright, red blood in stools or black,tarry stools : Negative for hematuria or frequent nighttime urination/ nocturia Musc Musc: Negative for muscle aches/ myalgia Skin Skin: Negative non-healing lesions or rash Neuro Neuro: Positive for other (Left arm falling asleep and numb. Lasting for minutes 2-3 times a week.); negative for dizziness, lightheadedness, near syncope, syncope, orthostatic symptoms or weakness Endo Endo: Negative for fatigue Allergy Allergy/Immunology: Negative for rash Cardiology Exam Const Appearance: cooperative, healthy appearing, comfortable and no acute distress Nutritional Appearance: well nourished and obese Orientation: alert, awake and oriented x3 Head Head: normal to inspection Ears: hearing grossly normal bilaterally Nose: external nose normal Face and Sinus: face symmetric Mouth: oral mucosae normal Eyes General: appearance normal, both eyes and all related structures Eyelids: eyelids normal EOM: EOM intact bilaterally Neck Neck: normal visual inspection and no JVD Carotids: normal carotid upstroke Chest Chest inspection: normal inspection of the chest, symmetric chest movement and normal respiratory effort; negative cough Auscultation: Bilateral: Inspiratory Wheezes Cardio Rate: regular rate Rhythm: regular rhythm Heart sounds: S1 normal and S2 normal; negative rub, gallop or murmur GI GI: normal to inspection and obese Neuro General: alert, awake, oriented x3 and CN's II-XI intact bilaterally Skin Skin: no rashes or lesions noted Extremities Pulses: Normal: Right Posterior Tibial Pulse, Left Posterior Tibial Pulse, Right Radial Pulse, Left Radial Pulse Lower Extremity Edema: None: Bilateral Psych Psychological: normal affect Assessment & Plan 1. Atherosclerosis of [place] coronary artery of [place] heart without angina pectoris I25.10 OWG-BYC-Aykg RCA w/ 4.0 x 38 mm Synergy Stent and Mid RCA w/ 4.0 x 16 mm Synergy Stent 07/08/2020 Plan Patient denies any chest pain, arm pain, jaw pain, neck pain, shortness of breath, or fatigue suggestive of angina at this time. We will continue to monitor. We will not make any medication regimen changes and will continue risk factor modification. 2. History of coronary artery stent placement Z95.5 [id number] RCA w/ 4.0 x 38 mm Synergy Stent and Mid RCA w/ 4.0 x 16 mm Synergy Stent 07/08/2020 Plan He will continue current medical therapy which includes aspirin, Vascepa, lisinopril, metoprolol, simvastatin, and Brilinta. 3. Dyslipidemia E78.5 Plan His lipid panel on 07/08/2020 showed cholesterol: 133, HDL: 33, LDL: 33, and triglycerides: 333. He believes this will be followed with primary care physician in the near future. He was reminded of the importance of cholesterol control relation to cardiovascular health. He will continue current medical therapy. 4. Essential hypertension I10 Plan His blood pressure is slightly elevated today in office. It was discussed in regards to increasing lisinopril to 20 mg p.o. daily. Through discussion, it was decided continue to monitor and continue with healthy lifestyle such as exercise and weight loss. He does not upcoming plan with primary care physician in which his blood pressure will be rechecked. He was informed that if his blood pressure continues to remain elevated, we will consider increasing lisinopril to 20 mg p.o. daily. Plan Detail Additional Comments Thank you for allowing us to participate in the patients plan of care, if you have any questions please do not hesitate to call. This note was generated using a voice recognition system and there may be incorrect words, spelling or punctuation that were not noted when reviewing the office note prior to saving. Coding Level of Care Code Off vis,est,level 3 Diagnoses Atherosclerosis of [place] coronary artery of [place] heart without angina pectoris I25.10 ??[place] vs. transplanted heart: [place] heart History of coronary artery stent placement Z95.5 Dyslipidemia E78.5 Essential hypertension I10 Coding Level of Care Code Off vis,est,level 3 Diagnoses Atherosclerosis of [place] coronary artery of [place] heart without angina pectoris I25.10 ??[place] vs. transplanted heart: [place] heart History of coronary artery stent placement Z95.5 Dyslipidemia E78.5 Essential hypertension I10 Supplemental Info Supplemental Information Heart catheterization from 07/08/2020: CONCLUSIONS Significant single-vessel coronary disease with proximal 95% right coronary artery stenosis and mid 99% right coronary stenosis in the calcified vessel. Calcification noted in the left anterior descending artery with mild to moderate disease. Preserved left ventricular systolic function. RECOMMENDATIONS Referred for immediate PCI CORONARY ANGIOGRAPHY DOMINANCE: Right Dominant LEFT HEART ASSESSMENT Left Ventricular Ejection Fraction: by LV Gram 60 % Normal LV wall motion Normal Left Ventricular systolic function LEFT MAIN: Mild calcification, Angiographically normal LEFT ANTERIOR DESCENDING ARTERY: PROX LAD: Mild luminal irregularities less than 30% MID LAD: Moderate calcification CIRCUMFLEX ARTERY: No significant disease noted RIGHT CORONARY ARTERY: Moderate calcification PROX RCA: 95 % Stenosis MID RCA: 99 % Stenosis Cardiac intervention from 07/08/2020: CONCLUSIONS Successful PCI with ADILSON to proximal and mid RCA RECOMMENDATIONS ASA Indefinitlediego Cruz for at least 12 months Follow up with Dr. Lozoya Echocardiogram from 09/13/2014: Interpretation Summary Normal LV size. Left ventricular systolic function is normal. The estimated ejection fraction is 55 %. Transmitral and pulmonary venous doppler flow suggestive of impaired relaxation of left ventricle Mild (1+) tricuspid valve insufficiency. Bubble contrast study negative for right to left interatrial shunt. Stress test from 09/15/2014: CONCLUSION 1. Normal exercise myocardial perfusion stress test at a moderate workload. 2. Preserved ejection fraction. 3. Good functional work capacity. Labs LDL Cholesterol 33 mg/dL (0-130) 07/08/20 HDL Cholesterol 33 mg/dL (40-) L 07/08/20 Triglycerides 333 mg/dL (-199) H 07/08/20 VLDL Cholesterol 67 mg/dL (5-40) H 07/08/20 Diagnostics Electrocardiogram 07/09/20 Echocardiogram 09/13/14 Stress Test Nuclear Medicine 09/15/14 Cardiac Catheterization 07/08/20 Chest X-Ray 07/08/20
--- NOTE | 2020-11-13 11:35 | CL.D_ITS ---
Patient Name: MERCY MILLAN Study Date: 11/13/2020 Performing: Ronny Lozoya MD Ht: 68.89 inches 175 cm : 1960 Wt: 238.1 lbs 108 kg Age: 60 Gender: male BSA: 2.22 PROCEDURE(S) PERFORMED [id number]/LV CLINICAL PROFILE AND INDICATIONS Indications: Worsening Angina Heart Failure: None Stress/Imaging Date: 11/11/20ress Test with SPECT MPI: Positive Intermediate Risk CAD Presentations: Unstable angina. CONCLUSIONS In-stent stenosis noted within the proximal right coronary artery stent in the distal edge of the mid right coronary artery stent. Moderately severe stenosis also noted in the distal circumflex artery. RECOMMENDATIONS Referred for immediate PCI DESCRIPTION OF PROCEDURE The patient arrived to the procedure lab. The risks and benefits of the procedure as well as a full d escription of our services here and current unavailability of surgical backup were fully explained to the patient and/or their significant other prior to the catheterization. The Timeout was completed, verifying the correct patient and procedure. The patient's procedural site was prepped and draped in the usual fashion. Local anesthetic was given subcutaneously to right radial region with Lidocaine 2% . Local anesthetic was given subcutaneously to right radial region with Lidocaine 2%. Using a modifie d Seldinger technique, arterial access was obtained via the right radial artery, a 6Fr sheath was ins erted. Right Coronary Artery selective angiography was then performed in multiple views using a 5 Fr . 4.0 [place] catheter. Left Coronary Artery selective angiography was performed in multiple views usin g a 5 Fr. 4.0 [place] catheter. Left Ventriculography was performed in CORTEZ projection using a 5 Fr. Pigtail catheter. LV to AO pullback pressures were then recorded. CORONARY ANGIOGRAPHY DOMINANCE: Right Dominant LEFT HEART ASSESSMENT Left Ventricular Ejection Fraction: by LV Gram 60 % Normal LV wall motion Normal Left Ventricular systolic function LEFT MAIN: Angiographically normal LEFT ANTERIOR DESCENDING ARTERY: MID LAD: Mild luminal irregularities less than 30% CIRCUMFLEX ARTERY: DISTAL CIRC: 80 % Stenosis RIGHT CORONARY ARTERY: Instent restenosis 70 % MID RCA: Previously placed stent is patent with a new 80 % lesion at distal edge of stent COMPLICATIONS PROCEDURE MEDICATIONS Fentanyl 50 mcg IV Versed 1 mg IV Versed 1 mg IV Oxygen: 2 L/min via nasal cannula Heparin diluted in 23cc Heparinized saline. Patient given 10cc IA of this solution. 11/13/2020 11:02: 48 Heparin 7000 unit(s) IV 11/13/2020 11:30:48 Verapamil 2.5mg, Ntg 100mcgs, 2000 units of Heparin diluted in 23cc Heparinized saline. Patient give n 10cc IA of this solution. 11/13/2020 11:02:48 SUMMARY OF HEMODYNAMIC DATA Time AIR REST ECG 08:55:02 AO 130/88 (107) SA 11:03:31 AO 124/84 (103) 11:03:56 LV 146/16, 24 11:12:56 LV 143/15, 23 11:13:05 LV 146/19, 29 11:13:54 LVp 160/24, 28 11:13:58 AOp 159/90 (120) 11:14:03 AO 173/107 (136) 11:30:56 Signed By Ronny Lozoya MD On 11/13/2020 11:34:34 Ronny Lozoya MD
--- NOTE | 2020-11-13 13:40 | CRPHASE1_ITS ---
Patient Communication Former Patient:: Phase I PHII Cardiac Rehab Discussed with Patient:: No Guide to Cardiac Rehab Given to Patient:: No Cardiac Rehab Facility Choice List Given to Patient:: No Choice Program [facility] CR PHII:: Communication Given to CR Director Of Operations For Therapy:: Shireen Short Refer Phase II Cardiac Rehab:: Yes Sessions:: 36 sessions - 3 days/wk, 12 weeks Cardiac Rehabilitation Info Cardiac Rehabilitation Program Information: Cardiac Rehabilitation is important for patients like you who are recovering from a heart problem. Cardiac rehabilitation programs are recognized as integral to the continued care of the patient with coronary heart disease. The cardiac rehabilitation program is designed to optimize a patient's physical, psychological, and social functioning. Health director of healthcare systems work in cardiac rehabilitation programs and assist you with getting the treatments you need to get stronger and healthier - like exercise, healthy eating habits, and medications. Cardiac rehabilitation has been show to help people with heart problems live longer and have better life enjoyment than people who do not go to cardiac rehabilitation. Please contact the Cardiac Rehabilitation Program at [facility] at in two weeks if you have not heard from them.
--- NOTE | 2020-11-13 13:42 | CRPH1.INST_ITS ---
General Education CAD and cardiac anatomy and function:: Patient communicates acknowledgment, Needs reinforcement Explanation of diagnoses and procedures:: Patient communicates acknowledgment, Needs reinforcement Sign/Symptoms of OR:: Patient communicates acknowledgment, Needs reinforcement Antiplatelet therapy: Patient communicates acknowledgment, Needs reinforcement Proper use of NTG-SL: Patient communicates acknowledgment, Needs reinforcement Emergency procedures and activation of EMS: Patient communicates acknowledgment, Needs reinforcement Compliance of all prescribed medications: Patient communicates acknowledgment, Needs reinforcement Smoking Recommendations Include:: Previous smoker; encourage continued cessation Nicotine/Smoking Response Code:: Patient communicates acknowledgment Dyslipidemia Patient Dyslipidemia Risk Factors Are:: Total Cholesterol, Triglycerides, HDL, LDL Recommendations Include:: Lipid profile provided, Reviewed NCEP/ATP guidelines, Therapeutic Lifestyle Change dietary guidelines Dyslipidemia Response Code:: Patient communicates acknowledgment, Needs reinforcement Overweight/Obesity Patient Overweight/Obesity Risk Factors Are:: Obesity - > or = 30 Recommendations Include:: Weight loss of 5-10%, Reduced calorie diet, Exercise 5-7 times/week Overweight/Obesity:: Patient communicates acknowledgment, Needs reinforcement Hypertension Recommendations Include:: Maintain BP <130/85, DASH dietary guidelines, Decrease/maintain normal body weight, Moderation of ETOH Hypertension:: Patient communicates acknowledgment, Needs reinforcement Heart Disease Patient Heart Disease Risk Factors Are:: Previous cardiac event Recommendations Include:: Educated family members of their risk Heart Disease Response Code:: Patient communicates acknowledgment, Needs r einforcement Sedentary Patient Sedentary Risk Factors Are:: Lack of regular exercise Recommendations Include:: Aerobic exercise 5-7 times/week for 20-30 minutes continuously, Benefits of regular exercise, Discussed home walking program, Monitored Outpatient Cardiac Rehab Sedentary Response Code:: Patient communicates acknowledgment, Needs reinforcement Stress Recommendations Include:: Identification of stressors, and assessment of coping skills, Stress management techniques Stress Response Code:: Patient communicates acknowledgment, Needs reinforcement
[2020-11-13] MEDS: 0.9% Normal Saline 1,000 ML 80 ML IV (14:29)
--- NOTE | 2020-11-13 15:15 | CL.I_ITS ---
Patient Name: MERCY MILLAN Study Date: 11/13/2020 Performing: Vy Short MD Ht: 69 inches 175 cm : 1960 Wt: 238.4 lbs 108 kg Age: 60 Gender: male BSA: 2.22 PROCEDURE(S) PERFORMED [id number] W OR WO PTCA, SINGLE CORONARY ARTERY [id number] W OR WO PTCA, SINGLE CORONARY ARTERY CLINICAL PROFILE AND CO-MORBIDITIES Indications: Worsening Angina Heart Failure: None Stress/Imaging Date: 11/11/20 Stress Test with SPECT MPI: Positive Intermediate Risk CAD Presentations: Unstable angina. CONCLUSIONS Successful PCI of instent restenosis of proximal and mid RCA with ADILSON. Successful PCI of dLCx with D ES RECOMMENDATIONS DESCRIPTION OF PROCEDURE The patient arrived to the procedure lab. The risks and benefits of the procedure as well as a full d escription of our services here and current unavailability of surgical backup were fully explained to the patient and/or their significant other prior to the catheterization. The Timeout was completed, verifying the correct patient and procedure. The patient's procedural site was prepped and draped in the usual fashion. Local anesthetic was given subcutaneously to right radial region with Lidocaine 2% . Local anesthetic was given subcutaneously to right radial region with Lidocaine 2% Using a modified Seldinger technique,arterial access was obtained via the right radial artery, a 6Fr sheath was inser carla. Right Coronary Artery selective angiography was then performed in multiple views using a 5 Fr. 4 .0 [place] catheter. Left Coronary Artery selective angiography was performed in multiple views using a 5 Fr. 4.0 [place] catheter. Left Ventriculography was performed in CORTEZ projection using a 5 Fr. Pigtail catheter. LV to AO pullback pressures were then recorded.The images were reviewed and opt ions discussed. A decision was then made to proceed with an Intervention, IVUS or other adjunct proce dure. JR 4 Guide catheter was inserted and engaged into the RCA. Angiogram performed pre balloon dilata tion. BMW Guide wire was advanced to the RCA. 4.0 x 12 NC Euphora Balloon catheter was advanced acros s lesion in the right coronary, proximal. PTCA balloon inflated at 12 atms for 8 secs. PTCA balloon i nflated at 12 atms for 7 secs. Balloon catheter was advanced across lesion in the right coronary, mid . PTCA balloon inflated at 12 atms for 12 secs. Balloon catheter was repositioned to additional lesio n in the right coronary, proximal. PTCA balloon inflated at 20 atms for 35 secs. 5.0 x 12 NC Euphora Balloon catheter was advanced across lesion in the right coronary, proximal. PTCA balloon inflated at 12 atms for 11 secs. PTCA balloon inflated at 12 atms for 17 secs. PTCA balloon inflated at 12 atms for 10 secs. PTCA balloon inflated at 12 atms for 10 secs. 4.0 x 8 Emerge Balloon catheter was advanc ed across lesion in the circumflex, proximal. PTCA balloon inflated at 6 atms for 8 secs. PTCA balloon inflated at 6 atms for 5 secs. PTCA balloon inflated at 6 atms for 7 secs. PTCA balloon inflated at 6 atms for 8 secs. Balloon catheter was advanced across lesion in the right coronary, mid . PTCA balloon inflated at 6 atms for 4 secs. PTCA balloon inflated at 6 atms for 9 secs. 4.5 x 12 Ap ex Balloon catheter was advanced across lesion in the right coronary, mid. PTCA balloon inflated at 6 atms for 20 secs. 4.0 x 8 Emerge Balloon catheter was advanced across lesion in the right coronary, mid. 3.5 x 12 Emerge Balloon catheter was advanced across lesion in the right coronary, mid. Resolute 4.0 x 9 Drug Eluting stent was advanced across the lesion in the right coronary, mid. PTCA balloon i nflated at 8 atms for 11 secs. 4.0 x 12 Resolute Drug Eluting stent was advanced across the lesion in the right coronary, proximal. Angiogram performed post stent deployment. XB 3.5 Guide catheter was i nserted and engaged into the LCA. BMW Guide wire was advanced to the Circumflex. 2.25 x 8 Synergy Drug Eluting stent was advanced across the lesion in the circumflex, distal. Angiogram perfor med post stent deployment. The arterial sheath was pulled and a TR Band was applied for hemostasis INTERVENTION INFORMATION LESION SITE: RCA (Proximal) Lesion Complexity: High/C, chronic total occlusion: No, lesion at bifurcation: No, thrombus present: No, lesion length: 11 mm, culprit lesion: Yes, Previously treated lesion: Yes, Timeframe of previous treatment: 1-5 months, Previously treated with a stent: Yes Stent Type: with ADILSON, In-stent Thrombosis : No, In-stent restenosis: Yes Pre Stenosis: 80 % Pre intervention NISHANT flow: 3 PROCEDURE: Drug Eluting Stent with pre and post dilatation Post Stenosis: 0 % Post intervention NISHANT flow: 3 Lesion Devices: Medtronic 6 Fr JR4.0 100cm Guide Catheter [place] .014 BMW [place] Straight 190cm Medtronic NC EUPHORA RX 4.0x12 BALLOON Medtronic NC EUPHORA RX 5.0x12 BALLOON Alejandro Sci EMERGE MR 4.00x08 BALLOON Medtronic Resolute RX ADILSON 4.0x12 LESION SITE: RCA (Mid) Lesion Complexity: High/C, chronic total occlusion: No, lesion at bifurcation: No, thrombus present: No, lesion length: 8 mm, culprit lesion: Yes, Previously treated lesion: Yes, Timeframe of previous t reatment: 1-5 months, Previously treated with a stent: Yes Stent Type: with ADILSON, In-stent Thrombosis: No, In-stent restenosis: Yes Pre Stenosis: 80 % Pre intervention NISHANT flow: 3 PROCEDURE: Drug Eluting Stent with pre dilatation. Post Stenosis: 0 % Post intervention NISHANT flow: 3 Lesion Devices: Medtronic 6 Fr JR4.0 100cm Guide Catheter [place] .014 BMW [place] Straight 190cm Medtronic NC EUPHORA RX 4.0x12 BALLOON Alejandro Sci APEX MR 4.50x12 BALLOON Medtronic Resolute RX ADILSON 4.0x09 Vascular Solutions 6 [place] GuideLiner Alejandro Sci EMERGE MR 3.50x12 BALLOON LESION SITE: RCA (Distal) Lesion Complexity: High/C, chronic total occlusion: No, lesion at bifurcation: No, thrombus present: No, lesion length: 6 mm, culprit lesion: Yes, Previously treated lesion: No Pre Stenosis: 80 % Pre intervention NISHANT flow: 3 PROCEDURE: Drug Eluting Stent 0 % Post intervention NISHANT flow: 3 Lesion Devices: Cardinal 6 Fr XB3.5 100cm Guide Catheter [place] .014 BMW [place] Straight 190cm Alejandro Sci Synergy MR ADILSON 2.25x08 COMPLICATIONS No Complications PROCEDURE MEDICATIONS Fentanyl 50 mcg IV Versed 1 mg IV Versed 1 mg IV Oxygen: 2 L/min via nasal cannula Heparin diluted in 23cc Heparinized saline. Patient given 10cc IA of this solution. 11/13/2020 11:02: 48 Heparin 7000 unit(s) IV 11/13/2020 11:30:48 Heparin 1000 unit(s) IV 11/13/2020 12:13:06 Heparin 2000 unit(s) IV 11/13/2020 12:37:41 Nitro 200 mcg IC 11/13/2020 12:40:18 Verapamil 2.5mg, Ntg 100mcgs, 2000 units of Heparin diluted in 23cc Heparinized saline. Patient give n 10cc IA of this solution. 11/13/2020 11:02:48 SUMMARY OF HEMODYNAMIC DATA Time AIR REST ECG 08:55:02 AO 130/88 (107) SA 11:03:31 AO 124/84 (103) 11:03:56 LV 146/16, 24 11:12:56 LV 143/15, 23 11:13:05 LV 146/19, 29 11:13:54 LVp 160/24, 28 11:13:58 AOp 159/90 (120) 11:14:03 AO 173/107 (136) 11:30:56 Signed By Vy Short MD On 11/13/2020 3:14:40 PM Vy Short MD
[2020-11-13] MEDS: Lisinopril 10 MG Tablet PO (21:55)
[2020-11-13] MEDS: Atorvastatin Calcium 20 MG Tablet PO (21:55)
[2020-11-13] MEDS: TICAGRELOR 90 MG TABLET PO (21:55)
[2020-11-13] MEDS: Pramipexole Di-HCl 0.25 MG Tablet PO (22:45)
[2020-11-14 03:00] VITALS: PULSE 61
[2020-11-14 03:42] VITALS: BP 151/79; PULSE 67; RESP 16; TEMP 36.8; O2SAT 96
[2020-11-14 07:31] LABS: Hematocrit 43.7 % (40-54); Hemoglobin 14.6 g/dL (13.0-16.5); Mean Corp Hgb Conc 33.4 g/dL (32-36); Mean Corpuscular Volume 92.8 fL (80-94); Mean Platelet Vol. 8.1 fl (6.2-12.0); Platelet Count 212 K/mm3 (150-450); RBC Distribution Width CV 12.3 % (11.6-14.6); RBC Distribution Width SD 42.3 fl (35.1-43.9); Red Blood Count 4.71 M/mm3 (4.6-6.2); White Blood Count 5.8 K/mm3 (4.4-11.0)
[2020-11-14 07:32] VITALS: PULSE 61
[2020-11-14 08:02] LABS: ALB/GLOB Ratio 1.1 RATIO (0.9-2.4); AST(SGOT) 24 U/L (15-37); Alanine Aminotransfer ALT/SGPT 46 U/L (16-61); Albumin, Serum 3.8 g/dL (3.2-5.0); Alkaline Phosphatase 88 U/L (45-117); Anion Gap 6 (5-15); BUN 17 mg/dL (7-18); BUN/Creat Ratio 17.6 RATIO (10-20); Chloride 102 mmol/L (98-107); Creatinine, Serum 0.96 mg/dL (0.70-1.30); EST Glomerular Filtration Rate 84 mL/min (>60); Est Glom Filt Rate - Afr Amer 102 mL/min (>60); Estimated Creatinine Clearance 84.49 ml/min; Globulin 3.6 g/dL (2.2-4.2); Glucose 111 mg/dL (74-106); Potassium 3.9 mmol/L (3.5-5.1); Protein, Total 7.4 g/dL (6.4-8.2); Sodium Level 137 mmol/L (136-145)
[2020-11-14 08:20] VITALS: O2SAT 95
[2020-11-14] MEDS: Pantoprazole Sodium 40 MG Tablet PO (08:28)
[2020-11-14] MEDS: Sertraline 50 MG Tablet 25 MG PO (08:28)
[2020-11-14] MEDS: TICAGRELOR 90 MG TABLET PO (08:28)
[2020-11-14 08:29] VITALS: PULSE 69
[2020-11-14] MEDS: Lisinopril 10 MG Tablet PO (08:29)
[2020-11-14] MEDS: Metoprolol(XL)Succ 25 MG Tablet PO (08:29)
[2020-11-14] MEDS: Aspirin 81 MG TAB.CHEW PO (08:29)
--- NOTE | 2020-11-14 09:09 | PN.CARD_ITS ---
Subjectve: Patient seen and evaluated. Appears to be doing well. Underwent angioplasty of the right coronary artery and circumflex artery. Objective: Vital Signs Temp Pulse Resp BP Pulse Ox 98.2 F 69 16 151/79 H 95 11/14/20 03:42 11/14/20 08:29 11/14/20 03:42 11/14/20 03:42 11/14/20 08:20 Oxygen Flow Rate (L/min) 2 Oxygen Delivery Method Room Air Weight: 234 lb 5.622 oz Body Mass Index (BMI) 34.0 Finger Stick Blood Glucose 101 Intake and Output for Last 24 Hours 11/12/20 11/13/20 11/14/20 23:59 23:59 23:59 Intake Total 1171.33 / 1171.33 200 / 200 Balance 1171.33 / 1171.33 200 / 200 General: Awake, Alert, Oriented x 3 HEENT: PERRL, EOMI, Sclera Non Icteric Neck: Supple, Good ROM, No Lymph Node Enlargement Lungs: Clear to auscultation Cardiovascular: Regular Rhythm, Normal S1, Normal S2, No Murmurs, No Rubs, No Gallops Vascular: No Carotid Bruits, Normal Femoral Pulses, Normal Radial Pulses, Normal Dorsalis Pedal Pulse, Normal Posterior Tibial Pulses Abdomen: Bowel Sounds Present, Soft, Non Tender, No HSM, No Organomegaly Extremities: No Cyanosis, No Clubbing, No edema Neurological: No Focal Motor or Sensory Deficit Psych/Mental Status: Appropriate 11/14/20 07:00: WBC 5.8, RBC 4.71, Hgb 14.6, Hct 43.7, MCV 92.8, MCH 31.0, MCHC 33.4, Plt Count 212, MPV 8.1 11/14/20 07:00: Sodium 137, Potassium 3.9, Chloride 102, Carbon Dioxide 29.0, Anion Gap 6, BUN 17, Creatinine 0.96, Est GFR (MDRD) Af Amer 102, Est GFR (MDRD) Non-Af 84, BUN/Creatinine Ratio 17.6, Glucose 111 H, Calcium 9.0, Total Bilir ubin 0.50 Rhythm: EKG: ECHO: Stress Test: Cardiac Cath: PCI: CT Surgery: Holter monitor: EPS: PPM: CXR: Chest CT Scan: Medical Necessity - Tobacco Use Smoking Status: Former smoker Assessment/Plan Status post angioplasty and stenting of the right coronary artery as well as the circumflex artery. Patient has done well overnight. No EKG changes no chest pain. Plan will be to discharge him for outpatient follow-up. He will follow cardiac rehabilitation.
--- NOTE | 2020-11-14 09:10 | DCINST_ITS ---
Discharge Diet: Low fat/ Low Cholesterol Lifting Restrictions: 10 pounds and also avoid any pushing or pulling for 3 days after your test. Additional Activity Instructions:: You must have someone drive you home. Do not drive until instructed by your doctor. You must have someone stay with you all night after your test. Rest in bed or on the couch until the next morning. Limit the number of times you go up and down stairs the day of your test. Apply pressure to the puncture site if you sneeze or cough. Call your doctor if your incision/area has: Increased Pain/ Swelling, Increased Redness, Foul Smelling Discharge, Swelling at the incision site Call your doctor if you observe: Fever of 101 or Higher Additional Dressing/Incision Instructions:: Keep the dressing (bandage) on until the next morning. You may then shower, but do not take a tub bath for 5 days after your test. It is normal to have some tenderness and discomfort at the puncture site. Sometimes bruising also occurs. However, if pain, numbness, or coldness occurs below the puncture site (in your leg, toes, arms or fingers) call your doctor at once. You may have a small, marble sized knot at the puncture site. This is normal. Do not rub it. It will go away in 4-6 weeks. Bleeding can occur from the area where the puncture was done. Blood may spurt or drip from the site. If blood spurts, apply pressure right away to stop bleeding and call 911. Although rare, bleeding into the tissue (hematoma) can also occur. If this happens, a large, firm area goose egg under the skin will appear. If any of these occur, lie down as flat as you can and have someone apply firm pressure to the cath site with a gauze pad or a clean washcloth for 10-15 minutes. Call 911 or go to the Emergency Department. Allergies/Adverse Reactions: Allergies No Known Allergies Allergy (Verified 10/27/20 14:22) Medications to take at Discharge Simvastatin [Zocor] 40 mg PO QHS 09/13/14 Fluticasone/Umeclidin/Vilanter [Trelegy Ellipta 100-62.5-25] 1 ea IH DAILY 07/08/20 Icosapent Ethyl [Vascepa] 2 gm PO BID 07/08/20 Omeprazole 40 mg PO DAILY 07/08/20 Aspirin [Aspirin, Baby] 81 mg PO DAILY@0800 tab.chew 07/09/20 metoprolol succinate 25 mg tablet,extended release 24 hr 25 mg PO DAILY #90 tab 07/29/20 ropinirole 0.25 mg tablet 0.5 mg PO QHS tab 07/29/20 sertraline 25 mg tablet 25 mg PO DAILY tab 07/29/20 ticagrelor 90 mg tablet 90 mg PO BID #180 tab 07/29/20 lisinopril 10 mg tablet 10 mg PO BID tab 11/05/20 Orders to be completed after discharge: Phase II, Outpatient Cardiac Rehab Location: None Selected Primary Care Physician: Tang Salinas DO [Primary Care Provider] - Test Results: Test results from this visit will be discussed in further detail at your follow- up appointment, if applicable. When: The heart group will call for follow-up. Cardiac rehabilitation will call Proposed Discharge Date: 11/14/20 Cardiac Rehabilitation Info Cardiac Rehabilitation Program Information: Cardiac Rehabilitation is important for patients like you who are recovering from a heart problem. Cardiac rehabilitation programs are recognized as integral to the continued care of the patient with coronary heart disease. The cardiac rehabilitation program is designed to optimize a patient's physical, psychological, and social functioning. Health career services officer work in cardiac rehabilitation programs and assist you with getting the tr eatments you need to get stronger and healthier - like exercise, healthy eating habits, and medications. Cardiac rehabilitation has been show to help people with heart problems live longer and have better life enjoyment than people who do not go to cardiac rehabilitation. Please contact the Cardiac Rehabilitation Program at [facility] at in two weeks if you have not heard from them.
[2020-11-14 09:20] VITALS: BP 157/81; PULSE 69; RESP 16; TEMP 36.8; O2SAT 95
--- NOTE | 2020-11-14 10:00 | EKG12_ITS ---
Test Reason : POST PCI Blood Pressure : / mmHG Vent. Rate : 058 BPM Atrial Rate : 058 BPM P-R Int : 202 ms QRS Dur : 098 ms QT Int : 420 ms P-R-T Axes : 027 000 050 degrees QTc Int : 412 ms Sinus bradycardia Otherwise normal ECG When compared with ECG of 09-JUL-2020 05:49, No significant change was found Confirmed by RISSA RIVERS, RONNY ([id number]), order editor NAEL DORMAN ([id number]) on 11/17/2020 10:52:03 AM Referred By: Ronny Lozoya Confirmed By:RONNY LOZOYA MD
== END 2020-11-14 09:11 | disposition home or self-care (01) ==
LOC: CLSP 08:40 → PCU 11-14 09:36
PROVIDERS: Specialist; PCP Preventive Medicine Occupational Medicine; Referring Provider Internal Medicine Cardiovascular Disease; Visit Provider Internal Medicine Cardiovascular Disease
DX: I25.110 Atherosclerotic heart disease of native coronary artery with unstable angina pectoris (principal); E78.5 Hyperlipidemia, unspecified; I10 Essential (primary) hypertension; E66.9 Obesity, unspecified; G47.33 Obstructive sleep apnea (adult) (pediatric); J44.9 Chronic obstructive pulmonary disease, unspecified; R73.03 Prediabetes; Z95.5 Presence of coronary angioplasty implant and graft; Z79.82 Long term (current) use of aspirin; Z79.899 Other long term (current) drug therapy; Z68.35 Body mass index [BMI] 35.0-35.9, adult; Z87.891 Personal history of nicotine dependence
CPT/HCPCS: 36415; 80048; 80053; 85025; 85027; 92928; 93005; 93458; 99152; 99153; J7030; J7040; Q9967; C1725; C1769; C1874; C1887; C1894; C9600

== ENCOUNTER 2021-10-05 11:56 | Emergency (ER) | payer BC, SELFPAY ==
[2021-10-05 11:57] VITALS: BP 156/82; PULSE 66; RESP 18; TEMP 36; O2SAT 100; BMI 34.4
--- NOTE | 2021-10-05 13:21 | EKG12_ITS ---
Test Reason : CP Blood Pressure : / mmHG Vent. Rate : 059 BPM Atrial Rate : 059 BPM P-R Int : 198 ms QRS Dur : 092 ms QT Int : 424 ms P-R-T Axes : 057 018 032 degrees QTc Int : 419 ms Sinus bradycardia Otherwise normal ECG Confirmed by RICHARD RIVERS, DENZEL ([id number]), copy editor NAEL DORMAN ([id number]) on 10/06/2021 11:53:17 AM Referred By: NERIS Confirmed By:DENZEL RAMOS MD
--- NOTE | 2021-10-05 13:21 | EDS_ITS ---
HPI History of Present Illness Chief Complaint: Other, Pain/Inj Narrative Narrative: Patient with past medical history of coronary artery disease with 5 stents presents with left-sided neck pain that has had over the last few days. He describes it as sometimes dull and achy. He denies other injury. He started becoming concerned because the pain is not going away, and he wanted to make sure that it had nothing to do with his heart. He denies any nausea or vomiting. No shortness of breath or diaphoresis. Pain is not necessarily worse with movement. No fevers or chills. No cough. The areas on the left side of his neck and left-sided trapezius. [facility] Medical History (Updated 10/05/21 @ 14:54 by Anthony Pro MD) Atherosclerotic heart disease of [place] coronary artery without angina pectoris Borderline diabetes Cancer Chest pain, unspecified COPD (chronic obstructive pulmonary disease) Disorientation Dyslipidemia Encounter for screening for COVID-19 Essential (primary) hypertension Lung disease Obesity Home Medications simvastatin 40 mg PO QHS 09/13/14 [History Last Taken 07/07/20] cupknjuuaec-rquesxruv-onzsqssq 1 ea IH DAILY 07/08/20 [History Last Taken 07/08/20] icosapent ethyl 2 g PO BID 07/08/20 [History Last Taken 07/08/20] omeprazole 40 mg PO DAILY 07/08/20 [History Last Taken 11/13/20] aspirin 81 mg PO DAILY@0800 tab.chew 07/09/20 [Rx Last Taken 11/13/20] ropinirole 0.25 mg tablet 0.5 mg PO QHS tab 07/29/20 [History Last Taken Unknown] sertraline 25 mg tablet 25 mg PO DAILY tab 07/29/20 [History Last Taken Unknown] alfuzosin 10 mg tablet,extended release 24 hr 10 mg PO DAILY 05/04/21 [History Last Taken Unknown] lisinopril 10 mg tablet 20 mg PO DAILY tab 05/04/21 [History Last Taken Unknown] metoprolol succinate 25 mg tablet,extended release 24 hr See Rx Instructions .ROUTE .COMPLEX #90 tab 07/23/21 [Rx Last Taken Unknown] ticagrelor 90 mg tablet See Rx Instructions .ROUTE .COMPLEX #180 tab 07/23/21 [Rx Last Taken Unknown] Allergy/AdvReac Type Severity Reaction Status Date / Time No Known Allergies Allergy Verified 10/05/21 11:59 Family History Mother CAD (coronary artery disease) CABG Diabetes Surgical History History of back surgery History of coronary artery stent placement (11/13/20) Social History Smoking Status: Former smoker Electronic Cigarette Use: not used how long ago did patient quit smokin years second hand exposure: Yes alcohol intake: current Alcohol type: beer EXAM Physical Exam Const Vital Signs: 10/05/21 11:57 10/05/21 12:53 10/05/21 13:37 Temperature 96.8 F L Temperature Source Temporal Pulse Rate 66 Respiratory Rate 18 Respiratory Effort Normal Non-Labored Blood Pressure 156/82 H Blood Pressure Mean 106 Pulse Ox 100 Oxygen Delivery Method Room Air Room Air 10/05/21 14:10 Temperature Temperature Source Pulse Rate 58 L Respiratory Rate 18 Respiratory Effort Blood Pressure 179/102 H Blood Pressure Mean 127 Pulse Ox 98 Oxygen Delivery Method Room Air MDM MDM MDM Narrative Medical decision making narrative: Although he is not having any chest pain, he is concerned that this may be his anginal equivalent. He has a normal white count of 6.1, hemoglobin stable at 13.4. Normal platelet count. Electrolyte panel is grossly unremarkable. EKG demonstrates normal sinus bradycardia at 59 bpm without ectopy or acute ST changes. Troponin is negative at 5. Chest x-ray is normal, there is hyperinflation, but no acute process. CT of the C-spine does show degenerative changes and left neural foraminal stenosis at C4-C5. At this point in time, I think his neck pain is coming from his cervical radiculopathy/spinal stenosis. He will take his mglo-pty-jhvjddo medications as needed and follow-up with his primary care physician for further work- up/evaluation and treatment. I feel he be discharged safely home. Return instructions reviewed. Disposition is discharged. He is in stable condition. Lab Data Attestation: I reviewed the patient's lab results. Labs: Laboratory Results - last 24 hr 10/05/21 10/05/21 13:33 13:33 WBC 6.1 RBC 4.23 L Hgb 13.4 Hct 38.8 L MCV 91.7 MCH 31.7 MCHC 34.5 RDW Std Deviation 40.3 RDW Coeff of Veda 12.0 Plt Count 190 MPV 7.9 Immature Gran % (Auto) 0.500 Neut % (Auto) 45.2 L Lymph % (Auto) 37.5 [place] % (Auto) 11.9 H Eos % (Auto) 3.9 Baso % (Auto) 1.0 Absolute Neuts (auto) 2.8 Absolute Lymphs (auto) 2.29 Nucleated RBC % 0 Sodium 136 Potassium 4.2 Chloride 106 Carbon Dioxide 26.0 Anion Gap 4 L BUN 23 H Creatinine 0.95 Estim Creat Clear Calc 84.31 Est GFR (MDRD) Af Amer 104 Est GFR (MDRD) Non-Af 86 BUN/Creatinine Ratio 24.2 H Glucose 101 Calcium 8.6 Troponin I High Sens 5 Radiography Diagnostic Testing: Clinical Impression(s) from Imaging Studies Cervical Spine CT 10/05/21 13:40 IMPRESSION: 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 Electronically Signed: Daniele Azul MD at 14:03 EST , Chest X-Ray 10/05/21 13:40 IMPRESSION: Hyperinflation. The lungs are clear. Stable examination. Electronically Signed: Daniele Azul MD at 14:04 EST , Discharge Plan Triage Chief Complaint: Other, Pain/Inj ED Provider: Anthony Pro Dx/Rx/DC Orders Clinical Impression: Acute neck pain, Cervical spinal stenosis Instructions: Spine Cervical Probs Tx, ED Neck Pain Prescriptions: No Action sertraline 25 mg tablet 25 mg PO DAILY RF: 0 alfuzosin 10 mg tablet extended release 24 hr 10 mg PO DAILY RF: 0 simvastatin 40 MG tablet 40 mg PO QHS RF: 0 omeprazole 40 MG capsule,delayed release(DR/EC) 40 mg PO DAILY RF: 0 icosapent ethyl 1 GM capsule 2 g PO BID RF: 0 qellpjonzqx-zhqnuslvf-xslcsnyq 1 EACH blister with device 1 ea IH DAILY RF: 0 aspirin 81 MG tablet,chewable 81 mg PO DAILY@0800 RF: 0 ropinirole 0.25 mg tablet 0.5 mg PO QHS RF: 0 lisinopril 10 mg tablet 20 mg PO DAILY RF: 0 metoprolol succinate 25 mg tablet extended release 24 hr See Rx Instructions .ROUTE .COMPLEX Qty: 90 RF: 3 Brilinta 90 mg tablet See Rx Instructions .ROUTE .COMPLEX Qty: 180 RF: 3 Primary Care Provider: Tang Salinas Referrals: Tang Salinas DO [Primary Care Provider] - As soon as possible Disposition Disposition: Home, Self Care
--- NOTE | 2021-10-05 13:40 | CT_ITS ---
STUDY: CT CERVICAL SPINE WITHOUT CONTRAST REASON FOR EXAM: Male, 61 years old. Neck pain radiating to the left shoulder. RADIATION DOSAGE (If Supplied By Facility): CTDIvol = ( 24.21 ) mGy, DLP = ( 509.35 ) mGycm TECHNIQUE: High resolution transaxial imaging was performed without contrast material. Sagittal and coronal images were reconstructed. Individualized dose optimization techniques were used for this CT. COMPARISON: None FINDINGS: Normal craniovertebral junction. There are degenerative changes of the anterior atlantoaxial articulation. Normal odontoid process. There is straightening of the normal cervical lordosis. Normal vertebral bodies and posterior osseous elements. C2-3: Normal endplates. Normal disc height and morphology. Normal central canal and intervertebral neuroforamina. C3-4: Normal endplates. Normal disc height and morphology. Normal central canal and intervertebral neuroforamina. 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 Mild degree of uncovertebral arthrosis with mild to moderate degree of left neural foraminal stenosis. C5-6: Normal endplates. Normal disc height and morphology. Normal central canal and intervertebral neuroforamina. C6-7: Normal endplates. Normal disc height and morphology. Normal central canal and intervertebral neuroforamina. C7-T1: Normal endplates. Normal disc height and morphology. Normal central canal and intervertebral neuroforamina. Atherosclerotic calcification of the cavernous portions of the internal carotid arteries bilaterally. 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 Electronically Signed: Daniele Azul MD at 14:03 EST ,
--- NOTE | 2021-10-05 13:40 | RAD_ITS ---
STUDY: X-RAY CHEST REASON FOR EXAM: Male, 61 years old. Chest pain TECHNIQUE: Single AP portable view of the chest. COMPARISON: Comparison is made with prior study dated 07/08/2020. FINDINGS: EKG electrodes are seen. There is hyperinflation of the lungs consistent with chronic obstructive lung disease (COPD). There is no demonstrated pleural abnormality. Normal size heart. Normal mediastinum and silverio. Normal visualized pulmonary arteries. There is atherosclerotic tortuosity of the aortic arch and descending thoracic aorta. There are diffuse degenerative changes of the visualized thoracic spine. Normal visualized ribs, clavicles, and shoulders. There is no demonstrated abnormality of the visualized soft tissue structures of the upper abdomen. RAD/Chest 1 View (Portable) IMPRESSION: Hyperinflation. The lungs are clear. Stable examination. Electronically Signed: Daniele Azul MD at 14:04 EST ,
[2021-10-05 13:46] LABS: Absolute Lymphocyte Count 2.29 X10^3/uL (0.83-4.51); Absolute Neutrophil Count 2.8 X10^3/uL (2.0-7.7); Basophil# 0.06 X10^3/uL; Eosinophil# 0.24 X10^3/uL; Eosinophils% 3.9 % (0-5); Hematocrit 38.8 % (40-54); Hemoglobin 13.4 g/dL (13.0-16.5); Lymphocyte # 2.29 X10^3/ul (0.83-4.51); Lymphocyte % 37.5 % (19-41); Mean Corp Hgb Conc 34.5 g/dL (32-36); Mean Corpuscular Hgb 31.7 pg (27.0-32.0); Mean Corpuscular Volume 91.7 fL (80-94); Mean Platelet Vol. 7.9 fl (6.2-12.0); Monocyte# 0.73 X10^3/uL; Monocyte% 11.9 % (0-10); NRBC Flagged by Analyzer 0 % (0-5); Neutrophil # 2.76 X10^3/uL (2.7-7.7); Neutrophil % 45.2 % (47-70); Platelet Count 190 K/mm3 (150-450); RBC Distribution Width SD 40.3 fl (35.1-43.9); Red Blood Count 4.23 M/mm3 (4.6-6.2); White Blood Count 6.1 K/mm3 (4.4-11.0)
[2021-10-05 14:00] LABS: Anion Gap 4 (5-15); BUN 23 mg/dL (7-18); BUN/Creat Ratio 24.2 RATIO (10-20); Calcium,Total 8.6 mg/dL (8.5-10.1); Chloride 106 mmol/L (98-107); Creatinine, Serum 0.95 mg/dL (0.70-1.30); EST Glomerular Filtration Rate 86 mL/min (>60); Est Glom Filt Rate - Afr Amer 104 mL/min (>60); Estimated Creatinine Clearance 84.31 ml/min; Glucose 101 mg/dL (74-106); Potassium 4.2 mmol/L (3.5-5.1); Sodium Level 136 mmol/L (136-145); Troponin-I HS 5 pg/mL (3.0-78.0)
[2021-10-05 14:10] VITALS: BP 179/102; PULSE 58; RESP 18; O2SAT 98
[2021-10-05 15:11] VITALS: BP 142/79; PULSE 72; RESP 16; O2SAT 96
== END 2021-10-05 15:12 | disposition home or self-care (01) ==
PROVIDERS: Emergency Provider Emergency Medicine; PCP Preventive Medicine Occupational Medicine; Visit Provider Emergency Medicine
DX: M48.02 Spinal stenosis, cervical region (principal); M54.2 Cervicalgia; E78.5 Hyperlipidemia, unspecified; I25.10 Atherosclerotic heart disease of native coronary artery without angina pectoris; I10 Essential (primary) hypertension; Z95.5 Presence of coronary angioplasty implant and graft; Z87.891 Personal history of nicotine dependence; Z79.82 Long term (current) use of aspirin; Z79.899 Other long term (current) drug therapy
CPT/HCPCS: 71045; 72125; 80048; 84484; 85025; 93005; 99284; A4216

== ENCOUNTER → 2021-12-28 | Outpatient (CLI) | payer BC, SELFPAY | END | disposition home or self-care (01) | LOC: LAB 16:05 | PROVIDERS: PCP Preventive Medicine Occupational Medicine; Referring Provider Urology; Visit Provider Urology | DX: Z12.5 Encounter for screening for malignant neoplasm of prostate (principal) | CPT/HCPCS: 36415; 84153; G0103 ==

== ENCOUNTER → 2022-06-20 | Outpatient (CLI) | payer BC, SELFPAY ==
--- NOTE | 2022-06-20 13:39 | ART_ITS ---
Reason For Study: Decreased Pedal Pulse Procedure A bilateral lower extremity continuous wave Doppler with analog waveform analysis,segmental pressures,and ankle brachial indexes without exercise. Left Segmental Pressures Left brachial= 142mmHg. Left posterior tibial artery = 174mmHg. Left dorsalis pedis artery = 159mmHg. The left posterior tibial artery waveforms are triphasic. The left dorsalis pedis waveforms are triphasic. Right Segmental Pressures Right brachial= 133mmHg. Right posterior tibial artery = 151mmHg. Right dorsalis pedis artery = 168mmHg. The right posterior tibial artery waveforms are triphasic. The right dorsalis pedis waveforms are triphasic. Indices The right ankle brachial index by the posterior tibial artery is 1.06. The right ankle brachial index by the dorsalis pedis is 1.18. The left ankle brachial index by the posterior tibial artery is 1.23. The left resting ankle brachial index is 1.12. VL/Lower Ext Art Exam w/o Exercis Interpretation Summary Normal right posterior tibialis and dorsalis pedis ankle-brachial indices at re st of 1.06 and 1.18 respectively with normal triphasic Doppler waveforms Normal left lower extremity posterior tibialis and dorsalis pedis ankle-brachia l indices of 1.23 and 1.12 at rest with normal triphasic Doppler waveforms Normal digital PPG's bilaterally Ordering Physician: Yara Moraes Referring Physician: Tang Salinas Performed By: Jack Davis RVT
== END | disposition home or self-care (01) ==
LOC: CVS 13:39
PROVIDERS: PCP Preventive Medicine Occupational Medicine; Referring Provider Physician Assistant Medical; Visit Provider Physician Assistant Medical
DX: I73.9 Peripheral vascular disease, unspecified (principal)
CPT/HCPCS: 93923

== ENCOUNTER → 2023-01-02 | Outpatient (CLI) | payer OTHER, SELFPAY | END | disposition home or self-care (01) | LOC: LAB 16:05 | PROVIDERS: PCP Preventive Medicine Occupational Medicine; Referring Provider Registered Nurse; Visit Provider Registered Nurse | DX: Z12.5 Encounter for screening for malignant neoplasm of prostate (principal) | CPT/HCPCS: 36415; 84153; G0103 ==

== ENCOUNTER → 2024-09-04 | Outpatient (CLI) | payer OTHER, SELFPAY ==
--- NOTE | 2024-09-04 06:01 | ECHOD_ITS ---
Version 2 Reason For Study: SHORTNESS OF BREATH Procedure This was a 2D Doppler, Color Flow transthoracic echocardiogram. Exam performed in department. Left Ventricle Normal LV size. Left ventricular systolic function is normal. The left ventricular ejection fraction is 60 %. Stage 1 diastolic dysfunction. No regional wall motion abnormalities noted. Right Ventricle Normal RV size. Normal systolic function. Atria Normal left atrium. Normal right atrium. Mitral Valve Normal mitral valve. Tricuspid Valve Normal tricuspid valve. Aortic Valve Trisinus/trileaflet aortic valve. Pulmonic Valve Normal pulmonic valve. Great Vessels Normal aortic root. The pulmonary artery is normal size. Inferior vena cava collapse with respiration. Pericardium/Pleural No pericardial effusion. MMode/2D Measurements & Calculations LVIDd: 5.3 cm IVSd: 1.2 cm LVOT diam: 2.1 cm LVIDs: 3.1 cm LVPWd: 1.1 cm LVOT area: 3.5 cm2 RVDd: 3.3 cm FS: 41.7 % asc Aorta Diam: 3.9 cm LAV(MOD-bp): 55.1 ml LVAd ap4: 26.5 cm2 LAV(MOD-bp) Indexed: 26.1 ml/m2 LVLd ap4: 7.6 cm LAV(MOD-sp2): 63.8 ml EDV(MOD-sp4): 75.5 ml LAV(MOD-sp4): 41.9 ml EDV(sp4-el): 78.2 ml LVAs ap4: 13.0 cm2 LVLs ap4: 6.2 cm ESV(MOD-sp4): 22.6 ml ESV(sp4-el): 22.9 ml EF(MOD-sp4): 70.1 % EF(sp4-el): 70.7 % LVAd ap2: 26.6 cm2 SV(MOD-sp4): 52.9 ml SV(MOD-sp2): 54.0 ml LVLd ap2: 7.8 cm SI(MOD-sp4): 25.1 ml/m2 SI(MOD-sp2): 25.6 ml/m2 EDV(MOD-sp2): 76.3 ml EDV(sp2-el): 77.5 ml LVAs ap2: 12.8 cm2 LVLs ap2: 6.4 cm ESV(MOD-sp2): 22.3 ml ESV(sp2-el): 21.9 ml EF(MOD-sp2): 70.7 % SV(sp4-el): 55.3 ml Ao sinus diam: 3.[address] Junction: 3.1 cm LA dimension(2D): 4.4 cm LA A4 area: 15.9 cm2 RA A4 area: 12.2 cm2 TAPSE: 2.4 cm Time Measurements MV dec time: 0.22 sec Doppler Measurements & Calculations MV E max jason: 61.7 cm/sec Lat Peak E' Jason: 7.3 cm/sec Med Peak E' Jason: 6.7 cm/sec MV A max jason: 106.1 cm/sec E/E' lat: 8.4 E/E' med: 9.2 MV E/A: 0.58 MV dec slope: 280.4 cm/sec2 Ao V2 max: 166.5 cm/sec LV V1 max: 124.6 cm/sec Ao max P.1 mmHg LV V1 max P.2 mmHg Ao V2 mean: 104.0 cm/sec LV V1 mean P.7 mmHg Ao mean P.1 mmHg LV V1 mean: 78.0 cm/sec Ao V2 VTI: 31.8 cm LV V1 VTI: 21.6 cm AV (velocity ratio): 0.68 SARAI(I,D): 2.3 cm2 SARAI(V,D): 2.6 cm2 SV(LVOT): 74.6 ml PA V2 max: 126.4 cm/sec ECHO/Echo Complete Interpretation Summary Normal LV size. Left ventricular systolic function is normal. The left ventricular ejection fraction is 70 %. Stage 1 diastolic dysfunction. Structurally normal valves. Ordering Physician: Rick Carrillo Referring Physician: MD Tang Salinas Performed By: Abi Hwang RDCS
--- NOTE | 2024-09-04 12:06 | STRESSREP_ITS ---
Stress Test Report Exercise myocardial perfusion stress test. 63-year-old man with a history of coronary artery disease and dyspnea Stress protocol: Resting EKG demonstrates normal sinus rhythm with a rate of 61 bpm resting blood pressure is 150/92 mmHg. The patient exercised according to the regular Willy protocol for a total duration of 6 minutes attaining a maximum heart rate of 137 bpm which was 87% of maximum predicted heart rate; the maximum workload was 7 metabolic equivalents. At rest there were no ST or T wave changes noted to suggest ischemia and at peak exercise upsloping ST changes only were noted which did not meet the criteria for ischemia. No clinical angina was noted the test was terminated due to the target heart rate being achieved/fatigue. The peak blood pressure was 210/88 mmHg. Rate-pressure product was 27,700. Myocardial perfusion protocol. 14.4 mCi of technetium 99m sestamibi was injected at rest. The patient exercise d according to regular Willy protocol for total duration of 6 minutes and at peak exercise 44.4 mCi of technetium 99m sestamibi was injected stress images were obtained stress and rest images were reconstructed in comparing the short axis vertical long and horizontal long axis. Gated images were also obtained. Perfusion SPECT analysis: Review of the stress images demonstrate normal uptake of tracer noted in all areas of the myocardium. The resting images similarly demonstrate normal uptake of tracer noted in all areas of the myocardium. No areas of reversibility are noted to suggest ischemia no previous infarct was noted. Gated SPECT analysis: The gated ejection fraction is 65%. Conclusion: Normal exercise myocardial perfusion stress test at a moderate workload Preserved ejection fraction.
== END | disposition home or self-care (01) ==
LOC: CVS 06:01
PROVIDERS: PCP Preventive Medicine Occupational Medicine; Referring Provider Nurse Practitioner Family; Visit Provider Nurse Practitioner Family
DX: I10 Essential (primary) hypertension (principal); R06.09 Other forms of dyspnea; Z95.5 Presence of coronary angioplasty implant and graft
CPT/HCPCS: 78452; 93017; 93306; A9500; A4216